=== PATIENT | female | born 1985 | race Caucasian/White ===

== ENCOUNTER 2017-09-16 00:29 | Emergency (ER) | payer MEDICARE, MEDICAID ==
[~2017-09-16] VITALS: Ht 154.9 cm; Wt 99.8 kg
[~2017-09-16 00:29] MED LIST: ABILIFY15 MG; ACETAMINOPHEN-1 EAC1 PO; AMLACTIN400 GM TP; ANTIVERT25 MG PO; AZITHROMYCIN 2250 MG PO; BACTRIM DS TAB1 EACH PO; BUSPIRONE HCL10 MG PO; CEFDINIR300 MG PO; CELEXA20 MG PO; CIPROFLOXIN HC2.5 M1 OPHTHALMIC; CRANBERRY200 MG; DOXYCYCLINE 10100 MG PO; GLUMETZA500; HYDRALAZINE 5050 MG; HYDROCHLOROTHIA25 M2 PO; HYDROCODONE-AP1 EAC6 PO; IBUPROFEN 800800 M1 PO; IBUPROFEN 800800 MG PO; LISINOPRIL10 MG PO; METFORMIN HCL500 MG PO; MULTIVITAMINS; NAPROSYN500 MG; NAPROSYN500 MG PO; NORCO 5-325 TA1 EACH PO; PAROXETINE HCL40 MG; PRAZOSIN 1 MG CA1 M1 PO; PREDNISONE50 MG PO; PROAIR HFA8.5 GM; PROAIR HFA8.5 GM PO; PROMETHAZINE-D120 ML PO; QVAR HFA 880 MCG/UN1; RISPERDAL 1 MG T1 MG PO; RISPERIDONE 1 MG1 MG; TOPAMAX 25 MG T25 M1; VENTOLIN HFA 1818 GM INH; ZANTAC 150MG T150 MG PO; ZOFRAN ODT4 MG PO
[2017-09-16] MEDS ORDERED: TRAMADOL 50 MG50 MG PO (00:41)
[2017-09-16] MEDS ORDERED: CLEOCIN HCL150 MG PO (00:41)
[2017-09-16 00:47] VITALS: BP 134/77
== END 2017-09-16 00:48 | disposition home or self-care (01) ==
LOC: M.ERS 00:29
DX: K08.89 Other specified disorders of teeth and supporting structures (principal); F17.210 Nicotine dependence, cigarettes, uncomplicated; F32.9 Major depressive disorder, single episode, unspecified; J45.909 Unspecified asthma, uncomplicated; F41.9 Anxiety disorder, unspecified; I10 Essential (primary) hypertension; F43.10 Post-traumatic stress disorder, unspecified; Z88.1 Allergy status to other antibiotic agents; Z88.0 Allergy status to penicillin; Z88.8 Allergy status to other drugs, medicaments and biological substances

== ENCOUNTER 2017-10-13 01:32 | Emergency (ER) | payer OTHER, MEDICAID ==
[~2017-10-13] VITALS: Ht 154.9 cm; Wt 104.3 kg
[~2017-10-13 01:32] MED LIST changes: +CLEOCIN HCL150 MG PO; +TRAMADOL 50 MG50 MG PO
[2017-10-13 01:57] LABS: ABSOLUTE BASOPHILS 0.1 thou/uL (0.0-0.2); ABSOLUTE EOSINOPHILS 0.2 thou/uL (0.0-0.7); ABSOLUTE LYMPHOCYTES 4.3 thou/uL (0.8-5.3); ABSOLUTE MONOCYTES 0.9 thou/uL (0.0-1.2); ABSOLUTE NEUTROPHILS 4.6 thou/uL (1.6-8.1); BASOPHILS 0.6 %; EOSINOPHILS 1.5 %; HEMATOCRIT 42.7 % (37.0-47.0); HEMOGLOBIN 14.3 gm/dL (12.0-15.0); LYMPHOCYTES 43.2 %; MCH 31.5 pg (26.0-34.0); MCHC 33.5 g/dL (28.0-37.0); MCV 93.8 fL (80.0-100.0); MONOCYTES 8.7 %; NUCLEATED RBCS 0 /100WBC; PLATELET COUNT* 340 thou/uL (150-400); RBC 4.55 mil/uL (4.20-5.00); RDW-CV 14.7 % (10.5-14.5)
[2017-10-13 02:02] LABS: ANION GAP 10 mmol/L (7-16); BUN 7 mg/dL (7-18); CALCIUM 8.5 mg/dL (8.5-10.1); CHLORIDE 106 mmol/L (98-107); CO2 25 mmol/L (21-32); CREATININE 0.7 mg/dL (0.6-1.3); GLUCOSE 154 mg/dL (70-99); POTASSIUM 3.3 mmol/L (3.5-5.1); SODIUM 141 mmol/L (136-145)
[2017-10-13 02:17] LABS: APTT 28.3 Seconds (25.0-31.3)
[2017-10-13 02:20] LABS: ALBUMIN 3.4 g/dL (3.4-5.0); ALKALINE PHOSPHATASE 75 U/L (46-116); LIPASE 217 U/L (73-393); MAGNESIUM 1.8 mg/dL (1.8-2.4); NT-PRO BRAIN NAT PEPTIDE 18 pg/mL (<300); SGOT 26 U/L (15-37); SGPT 64 U/L (30-65); TOTAL BILIRUBIN 0.2 mg/dL (<0.1-1.0); TOTAL PROTEIN 6.9 g/dL (6.4-8.2); TROPONIN-I LEVEL <0.06 ng/mL (<0.06)
[2017-10-13 02:29] VITALS: BP 150/72
--- NOTE | 2017-10-13 12:49 | EKG ---
[place] [address] ELECTROCARDIOGRAM REPORT Name: BRITTON CAT Room: [facility]#: [id number] Admission: 10/13/17 Attend Phys: Discharge: 10/13/17 Date of : [birth year] Report #: [id number] THIS REPORT FOR: //name// [facility] ED Test Date: 2017-10-13 Test Time: 01:35:28 Pat Name: BRITTON CAT Department: Room: Gender: F Radiology Asst: 9 : 1985 Requested By: Gage Huerta Order Number: [id number] MD: Gianfranco Aparicio Measurements Intervals [place] Rate: 93 P: 31 [place]: 136 QRS: 50 QRSD: 90 T: 29 QT: 339 QTc: 422 Interpretive Statements Sinus rhythm Multiple ventricular premature complexes Compared to ECG 06/22/2016 02:23:47 PVCs noted Electronically Signed On 10-13-2017 12:49:39 AUTOMOTIVE PARTS COORDINATOR by Gianfranco Aparicio [email or web address] <ELECTRONICALLY SIGNED> By: Gianfranco Aparicio MD, [facility] 10/13/17 1249 0135 0135 Gianfranco Aparicio MD, FACC /EPI
== END 2017-10-13 02:30 | disposition home or self-care (01) ==
LOC: M.ERS 01:32
PROVIDERS: Family Medicine
DX: R07.89 Other chest pain (principal); J45.909 Unspecified asthma, uncomplicated; I10 Essential (primary) hypertension; F32.3 Major depressive disorder, single episode, severe with psychotic features; Z88.0 Allergy status to penicillin; Z88.6 Allergy status to analgesic agent; Z88.1 Allergy status to other antibiotic agents; Z88.8 Allergy status to other drugs, medicaments and biological substances

== ENCOUNTER 2017-10-23 17:06 | Emergency (ER) | payer OTHER, MEDICAID ==
[~2017-10-23] VITALS: Ht 154.9 cm; Wt 104.3 kg
[2017-10-23] MEDS ORDERED: ACETAMINOPHEN-1 EAC1 PO (17:30)
[2017-10-23] MEDS ORDERED: IBUPROFEN 800800 MG PO (17:30)
[2017-10-23 17:34] VITALS: BP 149/83
== END 2017-10-23 17:42 | disposition home or self-care (01) ==
LOC: M.ERS 17:06
DX: M26.601 Right temporomandibular joint disorder, unspecified (principal); F32.9 Major depressive disorder, single episode, unspecified; F43.10 Post-traumatic stress disorder, unspecified; J45.909 Unspecified asthma, uncomplicated; F41.9 Anxiety disorder, unspecified; I10 Essential (primary) hypertension; F17.210 Nicotine dependence, cigarettes, uncomplicated; Z88.1 Allergy status to other antibiotic agents; Z88.2 Allergy status to sulfonamides; Z88.8 Allergy status to other drugs, medicaments and biological substances

== ENCOUNTER 2017-11-10 02:07 | Emergency (ER) | payer OTHER, MEDICAID ==
[~2017-11-10] VITALS: Ht 154.9 cm; Wt 104.3 kg
[2017-11-10] MEDS ORDERED: ACETAMINOPHEN-1 EAC1 PO (02:56)
[2017-11-10] MEDS ORDERED: CLEOCIN HCL150 MG PO (02:56)
[2017-11-10] MEDS ORDERED: IBUPROFEN 800800 M1 PO (02:56)
[2017-11-10 03:17] VITALS: BP 136/73
== END 2017-11-10 03:20 | disposition home or self-care (01) ==
LOC: M.ERS 02:07
DX: K02.9 Dental caries, unspecified (principal); I10 Essential (primary) hypertension; J45.909 Unspecified asthma, uncomplicated; Z88.1 Allergy status to other antibiotic agents; Z88.0 Allergy status to penicillin; Z88.6 Allergy status to analgesic agent

== ENCOUNTER 2017-11-18 02:40 | Emergency (ER) | payer OTHER, MEDICAID ==
[~2017-11-18] VITALS: Ht 154.9 cm; Wt 104.3 kg
[2017-11-18] MEDS ORDERED: CLEOCIN HCL150 MG PO (03:05)
[2017-11-18] MEDS ORDERED: PAROEX473 ML SWISH&SPIT (03:05)
[2017-11-18 03:17] VITALS: BP 153/80
== END 2017-11-18 03:18 | disposition home or self-care (01) ==
LOC: M.ERS 02:40
DX: K02.9 Dental caries, unspecified (principal); F32.9 Major depressive disorder, single episode, unspecified; F43.10 Post-traumatic stress disorder, unspecified; J45.909 Unspecified asthma, uncomplicated; F41.9 Anxiety disorder, unspecified; I10 Essential (primary) hypertension; F17.210 Nicotine dependence, cigarettes, uncomplicated; Z88.1 Allergy status to other antibiotic agents; Z88.6 Allergy status to analgesic agent; Z88.0 Allergy status to penicillin; Z88.8 Allergy status to other drugs, medicaments and biological substances

== ENCOUNTER 2018-01-08 00:43 | Emergency (ER) | payer OTHER ==
[~2018-01-08] VITALS: Ht 154.9 cm; Wt 102.1 kg
[~2018-01-08 00:43] MED LIST changes: +PAROEX473 ML SWISH&SPIT
[2018-01-08 01:21] LABS: URINE BILIRUBIN NEGATIVE (Negative); URINE BLOOD 3+ (Negative); URINE CLARITY SL CLOUDY; URINE COLOR YELLOW; URINE GLUCOSE-RANDOM NEGATIVE (Negative); URINE KETONES NEGATIVE (Negative); URINE LEUKOCYTES-REFLEX TRACE (Negative); URINE NITRITE-REFLEX NEGATIVE (Negative); URINE PROTEIN NEGATIVE (Negative); URINE UROBILINOGEN 0.2 E.U./dl (0.2-1.0)
[2018-01-08 01:32] LABS: ABSOLUTE BASOPHILS 0.1 thou/uL (0.0-0.2); ABSOLUTE EOSINOPHILS 0.2 thou/uL (0.0-0.7); ABSOLUTE LYMPHOCYTES 3.3 thou/uL (0.8-5.3); ABSOLUTE MONOCYTES 0.8 thou/uL (0.0-1.2); ABSOLUTE NEUTROPHILS 4.2 thou/uL (1.6-8.1); BASOPHILS 0.9 %; HEMOGLOBIN 14.9 gm/dL (12.0-15.0); LYMPHOCYTES 38.9 %; MCH 31.8 pg (26.0-34.0); MCHC 33.9 g/dL (28.0-37.0); MCV 93.6 fL (80.0-100.0); MONOCYTES 9.3 %; NUCLEATED RBCS 0 /100WBC; PLATELET COUNT* 325 thou/uL (150-400); POLYS 48.9 %; RDW-CV 14.6 % (10.5-14.5); WBC 8.6 thou/uL (4.0-11.0)
[2018-01-08 01:33] LABS: BACTERIA-REFLEX >30 Many /HPF (None Seen); CASTS None Seen /LPF (None Seen); CRYSTALS None Seen /LPF (None Seen); MUCUS 0-3 Light strn/LPF (None Seen); SQUAMOUS 0-3 Few /LPF (0-3); URINE RBC >20 Many /HPF (0-2); URINE WBC-REFLEX 6-15 Few /HPF (0-5); WBC CLUMPS Few (None Seen)
[2018-01-08 01:39] LABS: CALCIUM 9.4 mg/dL (8.5-10.1); CREATININE 0.6 mg/dL (0.6-1.3); POTASSIUM 3.2 mmol/L (3.5-5.1)
[2018-01-08 01:44] LABS: ALBUMIN 3.6 g/dL (3.4-5.0); TOTAL BILIRUBIN 0.3 mg/dL (<0.1-1.0); TOTAL PROTEIN 7.5 g/dL (6.4-8.2)
[2018-01-08] MEDS ORDERED: CIPROFLOXACIN500 M1 PO (02:13)
[2018-01-08] MEDS ORDERED: ZOFRAN ODT4 MG PO (02:13)
[2018-01-08 03:02] VITALS: BP 111/55
== END 2018-01-08 03:03 | disposition home or self-care (01) ==
LOC: M.ERS 00:43
PROVIDERS: Emergency Medicine
DX: N39.0 Urinary tract infection, site not specified (principal); R11.2 Nausea with vomiting, unspecified; R19.7 Diarrhea, unspecified; R10.33 Periumbilical pain; F32.9 Major depressive disorder, single episode, unspecified; F43.10 Post-traumatic stress disorder, unspecified; J45.909 Unspecified asthma, uncomplicated; F41.9 Anxiety disorder, unspecified; I10 Essential (primary) hypertension; F17.210 Nicotine dependence, cigarettes, uncomplicated; Z88.1 Allergy status to other antibiotic agents; Z88.6 Allergy status to analgesic agent; Z88.8 Allergy status to other drugs, medicaments and biological substances; Z88.0 Allergy status to penicillin

== ENCOUNTER 2018-01-16 22:58 | Emergency (ER) | payer OTHER, MEDICAID ==
[~2018-01-16] VITALS: Ht 154.9 cm; Wt 102.1 kg
[~2018-01-16 22:58] MED LIST changes: +CIPROFLOXACIN500 M1 PO
[2018-01-16 23:21] LABS: URINE BILIRUBIN NEGATIVE (Negative); URINE BLOOD NEGATIVE (Negative); URINE CLARITY CLEAR; URINE COLOR YELLOW; URINE GLUCOSE-RANDOM 1+ (Negative); URINE KETONES NEGATIVE (Negative); URINE LEUKOCYTES-REFLEX NEGATIVE (Negative); URINE NITRITE-REFLEX NEGATIVE (Negative); URINE PROTEIN NEGATIVE (Negative); URINE SPECIFIC GRAVITY >= 1.030 (1.005-1.030); URINE UROBILINOGEN 0.2 E.U./dl (0.2-1.0)
[2018-01-16 23:29] LABS: HEMATOCRIT 46.9 % (37.0-47.0); HEMOGLOBIN 15.8 gm/dL (12.0-15.0); MCHC 33.8 g/dL (28.0-37.0); MCV 91.8 fL (80.0-100.0); MPV 9.3 fl. (7.2-11.1); NUCLEATED RBCS 0 /100WBC; PLATELET COUNT* 368 thou/uL (150-400); RDW-CV 14.2 % (10.5-14.5); WBC 11.9 thou/uL (4.0-11.0)
[2018-01-16 23:31] LABS: CALCIUM 9.4 mg/dL (8.5-10.1); CREATININE 0.7 mg/dL (0.6-1.3); POTASSIUM 3.9 mmol/L (3.5-5.1)
[2018-01-16 23:35] LABS: ALBUMIN 3.7 g/dL (3.4-5.0); TOTAL BILIRUBIN 0.2 mg/dL (<0.1-1.0); TOTAL PROTEIN 7.7 g/dL (6.4-8.2)
[2018-01-16 23:49] LABS: ABSOLUTE EOSINOPHILS 0.1 thou/uL (0.0-0.7); ABSOLUTE MONOCYTES 0.6 thou/uL (0.0-1.2); ABSOLUTE NEUTROPHILS 8.2 thou/uL (1.6-8.1)
[2018-01-16 23:50] LABS: PLATELET ESTIMATE ADEQUATE
[2018-01-17] MEDS ORDERED: HYDROCODON-ACE1 EAC7 PO (00:57)
[2018-01-17 01:29] VITALS: BP 116/80
== END 2018-01-17 01:30 | disposition home or self-care (01) ==
LOC: M.ERS 22:58
PROVIDERS: Physician Assistant
DX: R10.33 Periumbilical pain (principal); R11.2 Nausea with vomiting, unspecified; R19.7 Diarrhea, unspecified; F32.9 Major depressive disorder, single episode, unspecified; F43.10 Post-traumatic stress disorder, unspecified; J45.909 Unspecified asthma, uncomplicated; F41.9 Anxiety disorder, unspecified; I10 Essential (primary) hypertension; E11.9 Type 2 diabetes mellitus without complications; F17.210 Nicotine dependence, cigarettes, uncomplicated; Z88.1 Allergy status to other antibiotic agents; Z88.6 Allergy status to analgesic agent; Z88.8 Allergy status to other drugs, medicaments and biological substances; Z88.0 Allergy status to penicillin

== ENCOUNTER 2018-04-26 23:50 | Emergency (ER) | payer OTHER, MEDICAID ==
[~2018-04-26] VITALS: Ht 154.9 cm; Wt 101.6 kg
[~2018-04-26 23:50] MED LIST changes: +HYDROCODON-ACE1 EAC7 PO
[2018-04-26 23:59] VITALS: BP 157/63
[2018-04-27] MEDS ORDERED: BUSPIRONE HCL10 MG PO (00:02)
[2018-04-27] MEDS ORDERED: PRAZOSIN 1 MG CA1 M1 PO (00:03)
[2018-04-27] MEDS ORDERED: NAPROSYN500 MG PO (00:40)
== END 2018-04-27 00:48 | disposition home or self-care (01) ==
LOC: M.ERS 23:50
DX: M25.511 Pain in right shoulder (principal); F32.9 Major depressive disorder, single episode, unspecified; J45.909 Unspecified asthma, uncomplicated; F41.9 Anxiety disorder, unspecified; I10 Essential (primary) hypertension; E11.9 Type 2 diabetes mellitus without complications; Z88.1 Allergy status to other antibiotic agents; Z88.0 Allergy status to penicillin; Z88.6 Allergy status to analgesic agent

== ENCOUNTER 2018-05-02 22:12 | Emergency (ER) | payer OTHER, MEDICAID ==
[~2018-05-02] VITALS: Ht 154.9 cm; Wt 101.6 kg
[2018-05-02] MEDS ORDERED: ZPAK PO (22:48)
[2018-05-02 23:02] VITALS: BP 135/79
== END 2018-05-02 23:03 | disposition home or self-care (01) ==
LOC: M.ERS 22:12
DX: J03.80 Acute tonsillitis due to other specified organisms (principal); B96.89 Other specified bacterial agents as the cause of diseases classified elsewhere; F32.9 Major depressive disorder, single episode, unspecified; J45.909 Unspecified asthma, uncomplicated; F41.9 Anxiety disorder, unspecified; I10 Essential (primary) hypertension; E11.9 Type 2 diabetes mellitus without complications; K58.9 Irritable bowel syndrome, unspecified; F17.210 Nicotine dependence, cigarettes, uncomplicated; Z88.1 Allergy status to other antibiotic agents; Z88.0 Allergy status to penicillin; Z88.6 Allergy status to analgesic agent; Z88.8 Allergy status to other drugs, medicaments and biological substances

== ENCOUNTER 2018-05-06 23:54 | Emergency (ER) | payer OTHER, MEDICAID ==
[~2018-05-06] VITALS: Ht 154.9 cm; Wt 101.6 kg
[~2018-05-06 23:54] MED LIST changes: +ZPAK PO
[2018-05-07] MEDS ORDERED: IBUPROFEN 800800 M1 PO (01:06)
[2018-05-07 01:17] VITALS: BP 144/80
== END 2018-05-07 01:18 | disposition home or self-care (01) ==
LOC: M.ERS 23:54
DX: B34.9 Viral infection, unspecified (principal); I10 Essential (primary) hypertension; F41.9 Anxiety disorder, unspecified; E11.9 Type 2 diabetes mellitus without complications; F32.9 Major depressive disorder, single episode, unspecified; K58.9 Irritable bowel syndrome, unspecified; F17.210 Nicotine dependence, cigarettes, uncomplicated; Z88.1 Allergy status to other antibiotic agents; Z88.0 Allergy status to penicillin; Z88.6 Allergy status to analgesic agent

== ENCOUNTER 2018-05-11 16:08 | Emergency (ER) | payer OTHER, MEDICAID ==
[~2018-05-11] VITALS: Ht 154.9 cm; Wt 101.6 kg
[2018-05-11] MEDS ORDERED: IBUPROFEN 800800 MG PO (16:47)
[2018-05-11] MEDS ORDERED: KEFLEX500 M1 PO (16:47)
[2018-05-11 17:01] VITALS: BP 145/99
== END 2018-05-11 17:03 | disposition home or self-care (01) ==
LOC: M.ERS 16:08
DX: M26.621 Arthralgia of right temporomandibular joint (principal); J45.909 Unspecified asthma, uncomplicated; I10 Essential (primary) hypertension; E11.9 Type 2 diabetes mellitus without complications; F17.210 Nicotine dependence, cigarettes, uncomplicated; Z88.0 Allergy status to penicillin; Z88.1 Allergy status to other antibiotic agents; Z88.6 Allergy status to analgesic agent; Z88.8 Allergy status to other drugs, medicaments and biological substances

== ENCOUNTER 2018-05-27 18:19 | Emergency (ER) | payer OTHER, MEDICAID ==
[~2018-05-27] VITALS: Ht 154.9 cm; Wt 101.6 kg
[~2018-05-27 18:19] MED LIST changes: +KEFLEX500 M1 PO
[2018-05-27 18:37] LABS: URINE BILIRUBIN NEGATIVE (Negative); URINE BLOOD NEGATIVE (Negative); URINE CLARITY CLEAR; URINE COLOR YELLOW; URINE GLUCOSE-RANDOM NEGATIVE (Negative); URINE KETONES NEGATIVE (Negative); URINE LEUKOCYTES TRACE (Negative); URINE NITRITE NEGATIVE (Negative); URINE PROTEIN NEGATIVE (Negative); URINE SPECIFIC GRAVITY <= 1.005 (1.005-1.030); URINE UROBILINOGEN 0.2 E.U./dl (0.2-1.0)
[2018-05-27] MEDS ORDERED: ZANTAC 150MG T150 MG PO (18:39)
[2018-05-27] MEDS ORDERED: METFORMIN HCL500 MG PO (18:39)
[2018-05-27] MEDS ORDERED: CRANBERRY500 M3 PO (18:40)
[2018-05-27 18:43] LABS: BACTERIA 1-9 Few /HPF (None Seen); CRYSTALS None Seen /LPF (None Seen); MUCUS None Seen strn/LPF (None Seen); SQUAMOUS 4-10 Moderate /LPF (0-3); URINE RBC None Seen /HPF (0-2); URINE WBC 0-5 Rare /HPF (0-5)
[2018-05-27 18:44] LABS: CASTS None Seen /LPF (None Seen)
[2018-05-27] MEDS ORDERED: TRAMADOL 50 MG50 MG PO (19:00)
[2018-05-27] MEDS ORDERED: CEFDINIR300 MG PO (19:00)
[2018-05-27] MEDS ORDERED: NABUMETONE 750750 M1 PO (19:00)
[2018-05-27] MEDS ORDERED: PYRIDIUM100 M1 PO (19:01)
[2018-05-27 19:27] VITALS: BP 128/54
[2018-05-28] MEDS ORDERED: ZOFRAN ODT4 MG SUBLING (01:48)
== END 2018-05-27 19:27 | disposition home or self-care (01) ==
LOC: M.ERS 18:19
PROVIDERS: Nurse Practitioner Family
DX: N39.0 Urinary tract infection, site not specified (principal); H66.91 Otitis media, unspecified, right ear; K04.7 Periapical abscess without sinus; K02.9 Dental caries, unspecified; E11.9 Type 2 diabetes mellitus without complications; I10 Essential (primary) hypertension; F41.9 Anxiety disorder, unspecified; J45.909 Unspecified asthma, uncomplicated; F32.9 Major depressive disorder, single episode, unspecified; F17.210 Nicotine dependence, cigarettes, uncomplicated; Z88.1 Allergy status to other antibiotic agents; Z88.0 Allergy status to penicillin; Z88.6 Allergy status to analgesic agent

== ENCOUNTER 2018-05-28 01:33 | Emergency (ER) | payer OTHER, MEDICAID ==
[~2018-05-28] VITALS: Ht 154.9 cm; Wt 101.6 kg
[~2018-05-28 01:33] MED LIST changes: +CRANBERRY500 M3 PO; +NABUMETONE 750750 M1 PO; +PYRIDIUM100 M1 PO
[2018-05-28 01:37] VITALS: BP 147/83
[2018-05-28] MEDS ORDERED: ZOFRAN ODT4 MG SUBLING (01:48)
== END 2018-05-28 02:09 | disposition home or self-care (01) ==
LOC: M.ERS 01:33
DX: R11.2 Nausea with vomiting, unspecified (principal); R06.02 Shortness of breath; K08.89 Other specified disorders of teeth and supporting structures; J45.909 Unspecified asthma, uncomplicated; F41.9 Anxiety disorder, unspecified; I10 Essential (primary) hypertension; E11.9 Type 2 diabetes mellitus without complications; F32.3 Major depressive disorder, single episode, severe with psychotic features; F17.210 Nicotine dependence, cigarettes, uncomplicated; Z88.1 Allergy status to other antibiotic agents; Z88.0 Allergy status to penicillin; Z88.6 Allergy status to analgesic agent

== ENCOUNTER 2018-06-03 23:13 | Emergency (ER) | payer OTHER, MEDICAID ==
[~2018-06-03] VITALS: Ht 154.9 cm; Wt 95.3 kg
[~2018-06-03 23:13] MED LIST changes: +ZOFRAN ODT4 MG SUBLING
[2018-06-03 23:32] LABS: URINE BILIRUBIN NEGATIVE (Negative); URINE BLOOD 1+ (Negative); URINE CLARITY CLEAR; URINE COLOR YELLOW; URINE GLUCOSE-RANDOM NEGATIVE (Negative); URINE KETONES NEGATIVE (Negative); URINE LEUKOCYTES-REFLEX TRACE (Negative); URINE NITRITE-REFLEX NEGATIVE (Negative); URINE PROTEIN NEGATIVE (Negative); URINE UROBILINOGEN 0.2 E.U./dl (0.2-1.0)
[2018-06-03] MEDS ORDERED: CLEOCIN HCL150 MG PO (23:48)
[2018-06-03] MEDS ORDERED: PERIDEX15 ML SWISH&SPIT (23:48)
[2018-06-03 23:56] VITALS: BP 153/79
[2018-06-03 23:57] LABS: SQUAMOUS >10 Many /LPF (0-3)
[2018-06-03 23:58] LABS: CASTS None Seen /LPF (None Seen)
[2018-06-04] LABS: URINE WBC-REFLEX 6-15 Few /HPF (0-5)
[2018-06-04 00:01] LABS: BACTERIA-REFLEX 1-9 Few /HPF (None Seen); URINE RBC 3-10 Few /HPF (0-2); YEAST-REFLEX Present (None Seen)
[2018-06-04 00:02] LABS: CRYSTALS None Seen /LPF (None Seen)
== END 2018-06-03 23:58 | disposition home or self-care (01) ==
LOC: M.ERS 23:13
PROVIDERS: Physician Assistant
DX: K04.7 Periapical abscess without sinus (principal); R30.0 Dysuria; F32.9 Major depressive disorder, single episode, unspecified; J45.909 Unspecified asthma, uncomplicated; F41.9 Anxiety disorder, unspecified; I10 Essential (primary) hypertension; E11.9 Type 2 diabetes mellitus without complications; F17.210 Nicotine dependence, cigarettes, uncomplicated; Z88.0 Allergy status to penicillin; Z88.1 Allergy status to other antibiotic agents; Z88.6 Allergy status to analgesic agent

== ENCOUNTER 2018-06-09 02:51 | Emergency (ER) | payer OTHER, MEDICAID ==
[~2018-06-09] VITALS: Ht 154.9 cm; Wt 101.6 kg
[~2018-06-09 02:51] MED LIST changes: +PERIDEX15 ML SWISH&SPIT
[2018-06-09 03:42] LABS: ABSOLUTE EOSINOPHILS 0.2 thou/uL (0.0-0.7); ABSOLUTE LYMPHOCYTES 3.4 thou/uL (0.8-5.3); ABSOLUTE MONOCYTES 0.7 thou/uL (0.0-1.2); ABSOLUTE NEUTROPHILS 4.2 thou/uL (1.6-8.1); BASOPHILS 0.4 %; EOSINOPHILS 1.8 %; HEMATOCRIT 42.1 % (37.0-47.0); MCH 31.4 pg (26.0-34.0); MCHC 33.3 g/dL (28.0-37.0); MCV 94.4 fL (80.0-100.0); MONOCYTES 8.3 %; MPV 8.9 fl. (7.2-11.1); NUCLEATED RBCS 0 /100WBC; PLATELET COUNT* 359 thou/uL (150-400); POLYS 49.5 %; RBC 4.46 mil/uL (4.20-5.00); RDW-CV 14.3 % (10.5-14.5); WBC 8.4 thou/uL (4.0-11.0)
[2018-06-09 03:52] LABS: ANION GAP 11 mmol/L (7-16); BUN 7 mg/dL (7-18); CALCIUM 9.1 mg/dL (8.5-10.1); CHLORIDE 104 mmol/L (98-107); CO2 24 mmol/L (21-32); CREATININE 0.6 mg/dL (0.6-1.3); GLUCOSE 103 mg/dL (70-99); SODIUM 139 mmol/L (136-145)
[2018-06-09 04:00] LABS: TROPONIN-I LEVEL <0.06 ng/mL (<0.06)
[2018-06-09 05:39] VITALS: BP 111/58
--- NOTE | 2018-06-09 12:01 | EKG ---
[place] [address] ELECTROCARDIOGRAM REPORT Name: BRITTON CAT [id number] Admission: 06/09/18 Attend Phys: Discharge: 06/09/18 Date of : [birth year] Report #: [id number] THIS REPORT FOR: //name// [facility] ED Test Date: 2018-06-09 Test Time: 02:57:58 Pat Name: BRITTON CAT Department: Room: Gender: F Sail Lay Out Worker: PIOTR : 1985 Requested By: Maureen Pérez Order Number: [id number] MD: Francis Gomez Measurements Intervals [place] Rate: 84 P: 36 [place]: 142 QRS: 45 QRSD: 92 T: 0 QT: 360 QTc: 426 Interpretive Statements Sinus rhythm Minimal ST depression, inferior leads Baseline wander in lead(s) I,II,aVR,V1,V3,V4,V5,V6 Compared to ECG 10/13/2017 01:35:28 ST (T wave) deviation now present Ventricular premature complex(es) no longer present Electronically Signed On 06-09-2018 12:01:22 CDT by Francis Gomez [email or web address] <ELECTRONICALLY SIGNED> By: Francis Gomez MD, FACC 06/09/18 1201 0257 0257 Francis Gomez MD, FACC /EPI
== END 2018-06-09 05:39 | disposition home or self-care (01) ==
LOC: M.ERS 02:51
PROVIDERS: Emergency Medicine
DX: F41.9 Anxiety disorder, unspecified (principal); F32.9 Major depressive disorder, single episode, unspecified; J45.909 Unspecified asthma, uncomplicated; I10 Essential (primary) hypertension; E11.9 Type 2 diabetes mellitus without complications; K58.9 Irritable bowel syndrome, unspecified; F17.210 Nicotine dependence, cigarettes, uncomplicated; Z88.1 Allergy status to other antibiotic agents; Z88.0 Allergy status to penicillin; Z88.6 Allergy status to analgesic agent

== ENCOUNTER 2018-06-22 00:48 | Emergency (ER) | payer OTHER, MEDICAID ==
[~2018-06-22] VITALS: Ht 154.9 cm; Wt 101.6 kg
[2018-06-22] MEDS ORDERED: ULTRAM 50MG TAB50 MG PO (01:54)
[2018-06-22 02:07] VITALS: BP 136/78
== END 2018-06-22 02:09 | disposition home or self-care (01) ==
LOC: M.ERS 00:48
DX: S93.401A Sprain of unspecified ligament of right ankle, initial encounter (principal); X58.XXXA Exposure to other specified factors, initial encounter; Y93.89 Activity, other specified; Y92.89 Other specified places as the place of occurrence of the external cause; Y99.8 Other external cause status; J45.909 Unspecified asthma, uncomplicated; F41.9 Anxiety disorder, unspecified; I10 Essential (primary) hypertension; E11.9 Type 2 diabetes mellitus without complications; F32.3 Major depressive disorder, single episode, severe with psychotic features; F17.210 Nicotine dependence, cigarettes, uncomplicated; Z88.0 Allergy status to penicillin; Z88.1 Allergy status to other antibiotic agents; Z88.6 Allergy status to analgesic agent

== ENCOUNTER 2018-07-19 22:09 | Emergency (ER) | payer OTHER, MEDICAID ==
[~2018-07-19] VITALS: Ht 154.9 cm; Wt 102.1 kg
[~2018-07-19 22:09] MED LIST changes: +ULTRAM 50MG TAB50 MG PO
[2018-07-19 22:47] VITALS: BP 121/75
== END 2018-07-19 22:47 | disposition home or self-care (01) ==
LOC: M.ERS 22:09
DX: M25.511 Pain in right shoulder (principal); H92.01 Otalgia, right ear; F32.9 Major depressive disorder, single episode, unspecified; J45.909 Unspecified asthma, uncomplicated; F41.9 Anxiety disorder, unspecified; I10 Essential (primary) hypertension; E11.9 Type 2 diabetes mellitus without complications; K58.9 Irritable bowel syndrome, unspecified; F17.210 Nicotine dependence, cigarettes, uncomplicated; Z88.1 Allergy status to other antibiotic agents; Z88.0 Allergy status to penicillin; Z88.6 Allergy status to analgesic agent; Z88.8 Allergy status to other drugs, medicaments and biological substances

== ENCOUNTER 2018-07-29 23:47 | Emergency (ER) | payer OTHER, MEDICAID ==
[~2018-07-29] VITALS: Ht 154.9 cm; Wt 102.1 kg
[2018-07-30] MEDS ORDERED: PREDNISONE50 MG PO (00:30)
[2018-07-30 00:55] VITALS: BP 130/70
== END 2018-07-30 00:55 | disposition home or self-care (01) ==
LOC: M.ERS 23:47
DX: R20.2 Paresthesia of skin (principal); M62.838 Other muscle spasm; F32.9 Major depressive disorder, single episode, unspecified; F32.3 Major depressive disorder, single episode, severe with psychotic features; J45.909 Unspecified asthma, uncomplicated; F41.9 Anxiety disorder, unspecified; E11.9 Type 2 diabetes mellitus without complications; K58.9 Irritable bowel syndrome, unspecified; Z88.1 Allergy status to other antibiotic agents; Z88.0 Allergy status to penicillin; Z88.6 Allergy status to analgesic agent; Z79.4 Long term (current) use of insulin

== ENCOUNTER 2018-08-16 20:34 | Emergency (ER) | payer OTHER, MEDICAID ==
[~2018-08-16] VITALS: Ht 154.9 cm; Wt 102.1 kg
[2018-08-16] MEDS ORDERED: BENTYL 20 MG TA20 M1 PO (21:19)
[2018-08-16] MEDS ORDERED: PROTONIX40 M1 PO (21:19)
[2018-08-16] MEDS ORDERED: CEFDINIR300 MG PO (21:37)
[2018-08-16 21:50] VITALS: BP 145/58
== END 2018-08-16 21:50 | disposition home or self-care (01) ==
LOC: M.ERS 20:34
DX: H66.91 Otitis media, unspecified, right ear (principal); F41.9 Anxiety disorder, unspecified; I10 Essential (primary) hypertension; E11.9 Type 2 diabetes mellitus without complications; K58.9 Irritable bowel syndrome, unspecified; F32.9 Major depressive disorder, single episode, unspecified; J45.909 Unspecified asthma, uncomplicated; F17.210 Nicotine dependence, cigarettes, uncomplicated; Z88.1 Allergy status to other antibiotic agents; Z88.0 Allergy status to penicillin; Z88.6 Allergy status to analgesic agent

== ENCOUNTER 2018-08-20 03:16 | Emergency (ER) | payer OTHER, MEDICAID ==
[~2018-08-20] VITALS: Ht 154.9 cm; Wt 102.1 kg
[~2018-08-20 03:16] MED LIST changes: +BENTYL 20 MG TA20 M1 PO; +PROTONIX40 M1 PO
[2018-08-20] MEDS ORDERED: NORCO 5-325 TA1 EACH PO (03:33)
[2018-08-20 03:48] VITALS: BP 137/88
[2018-08-21] MEDS ORDERED: CLEOCIN HCL300 MG PO (16:31)
== END 2018-08-20 03:45 | disposition home or self-care (01) ==
LOC: M.ERS 03:16
DX: M26.602 Left temporomandibular joint disorder, unspecified (principal); F41.9 Anxiety disorder, unspecified; E11.9 Type 2 diabetes mellitus without complications; K58.9 Irritable bowel syndrome, unspecified; J45.909 Unspecified asthma, uncomplicated; F32.3 Major depressive disorder, single episode, severe with psychotic features; F17.210 Nicotine dependence, cigarettes, uncomplicated; Z88.1 Allergy status to other antibiotic agents; Z88.0 Allergy status to penicillin; Z88.6 Allergy status to analgesic agent

== ENCOUNTER 2018-08-21 14:52 | Emergency (ER) | payer OTHER, MEDICAID ==
[~2018-08-21] VITALS: Ht 154.9 cm; Wt 102.1 kg
[2018-08-21 15:30] LABS: URINE BILIRUBIN NEGATIVE (Negative); URINE BLOOD NEGATIVE (Negative); URINE CLARITY CLEAR; URINE COLOR YELLOW; URINE GLUCOSE-RANDOM NEGATIVE (Negative); URINE KETONES NEGATIVE (Negative); URINE LEUKOCYTES-REFLEX NEGATIVE (Negative); URINE NITRITE-REFLEX NEGATIVE (Negative); URINE PROTEIN NEGATIVE (Negative); URINE SPECIFIC GRAVITY <= 1.005 (1.005-1.030); URINE UROBILINOGEN 0.2 E.U./dl (0.2-1.0)
[2018-08-21] MEDS ORDERED: CLEOCIN HCL300 MG PO (16:31)
[2018-08-21 16:41] VITALS: BP 141/82
== END 2018-08-21 16:41 | disposition home or self-care (01) ==
LOC: M.ERS 14:52
PROVIDERS: Nurse Practitioner Family
DX: K02.9 Dental caries, unspecified (principal); R30.0 Dysuria; L53.9 Erythematous condition, unspecified; F32.3 Major depressive disorder, single episode, severe with psychotic features; J45.909 Unspecified asthma, uncomplicated; F41.9 Anxiety disorder, unspecified; I10 Essential (primary) hypertension; E11.9 Type 2 diabetes mellitus without complications; K58.9 Irritable bowel syndrome, unspecified; F17.210 Nicotine dependence, cigarettes, uncomplicated; Z88.1 Allergy status to other antibiotic agents; Z88.0 Allergy status to penicillin; Z88.6 Allergy status to analgesic agent

== ENCOUNTER 2018-08-22 12:23 | Emergency (ER) | payer OTHER, MEDICAID ==
[~2018-08-22] VITALS: Ht 154.9 cm; Wt 102.1 kg
[~2018-08-22 12:23] MED LIST changes: +CLEOCIN HCL300 MG PO
[2018-08-22 13:06] LABS: ABSOLUTE BASOPHILS 0.1 thou/uL (0.0-0.2); ABSOLUTE EOSINOPHILS 0.1 thou/uL (0.0-0.7); ABSOLUTE LYMPHOCYTES 2.2 thou/uL (0.8-5.3); ABSOLUTE NEUTROPHILS 8.1 thou/uL (1.6-8.1); BASOPHILS 0.6 %; EOSINOPHILS 0.6 %; HEMATOCRIT 43.5 % (37.0-47.0); HEMOGLOBIN 14.8 gm/dL (12.0-15.0); LYMPHOCYTES 19.4 %; MCH 31.8 pg (26.0-34.0); MCV 93.6 fL (80.0-100.0); MONOCYTES 8.4 %; NUCLEATED RBCS 0 /100WBC; PLATELET COUNT* 352 thou/uL (150-400); RBC 4.65 mil/uL (4.20-5.00); RDW-CV 14.4 % (10.5-14.5); WBC 11.4 thou/uL (4.0-11.0)
[2018-08-22 13:12] LABS: CREATININE 0.5 mg/dL (0.6-1.3); POTASSIUM 3.8 mmol/L (3.5-5.1)
[2018-08-22 13:16] LABS: ALBUMIN 3.5 g/dL (3.4-5.0); TOTAL BILIRUBIN 0.4 mg/dL (<0.1-1.0); TOTAL PROTEIN 7.1 g/dL (6.4-8.2)
[2018-08-22 17:48] VITALS: BP 148/85
== END 2018-08-22 17:49 | disposition left against medical advice (07) ==
LOC: M.ERS 12:23
PROVIDERS: Personal Emergency Response Attendant
DX: K12.2 Cellulitis and abscess of mouth (principal); K02.9 Dental caries, unspecified; R22.0 Localized swelling, mass and lump, head; J45.909 Unspecified asthma, uncomplicated; F41.9 Anxiety disorder, unspecified; I10 Essential (primary) hypertension; E11.9 Type 2 diabetes mellitus without complications; K58.9 Irritable bowel syndrome, unspecified; R11.10 Vomiting, unspecified; F17.210 Nicotine dependence, cigarettes, uncomplicated; Z88.1 Allergy status to other antibiotic agents; Z88.6 Allergy status to analgesic agent; Z88.0 Allergy status to penicillin

== ENCOUNTER → 2018-12-19 | Emergency (ER) | payer OTHER, MEDICAID ==
[~2018-12-19] VITALS: Ht 154.9 cm; Wt 104.3 kg
[~2018-12-19] MED LIST changes: +FLONASE 0.05%50 MCG NASAL
[2018-12-19 23:09] VITALS: BP 143/68
== END ==
LOC: M.ERS 23:03
DX: J32.9 Chronic sinusitis, unspecified (principal); F17.210 Nicotine dependence, cigarettes, uncomplicated; F32.9 Major depressive disorder, single episode, unspecified; J45.909 Unspecified asthma, uncomplicated; F41.9 Anxiety disorder, unspecified; I10 Essential (primary) hypertension; E11.9 Type 2 diabetes mellitus without complications; K58.9 Irritable bowel syndrome, unspecified; Z88.1 Allergy status to other antibiotic agents; Z88.6 Allergy status to analgesic agent; Z88.8 Allergy status to other drugs, medicaments and biological substances; Z88.0 Allergy status to penicillin

== ENCOUNTER 2018-12-24 20:35 | Emergency (ER) | payer OTHER, MEDICAID ==
[~2018-12-24] VITALS: Ht 154.9 cm; Wt 104.3 kg
[2018-12-24 21:11] LABS: ABSOLUTE BASOPHILS 0.1 thou/uL (0.0-0.2); ABSOLUTE EOSINOPHILS 0.1 thou/uL (0.0-0.7); ABSOLUTE LYMPHOCYTES 2.9 thou/uL (0.8-5.3); ABSOLUTE MONOCYTES 0.6 thou/uL (0.0-1.2); ABSOLUTE NEUTROPHILS 5.8 thou/uL (1.6-8.1); BASOPHILS 1.3 %; EOSINOPHILS 1.2 %; HEMATOCRIT 42.5 % (37.0-47.0); HEMOGLOBIN 14.5 gm/dL (12.0-15.0); LYMPHOCYTES 30.5 %; MCH 31.5 pg (26.0-34.0); MCHC 34.1 g/dL (28.0-37.0); MCV 92.4 fL (80.0-100.0); MONOCYTES 6.3 %; MPV 8.6 fl. (7.2-11.1); NUCLEATED RBCS 0 /100WBC; PLATELET COUNT* 336 thou/uL (150-400); POLYS 60.7 %; RDW-CV 14.3 % (10.5-14.5); WBC 9.6 thou/uL (4.0-11.0)
[2018-12-24 21:19] LABS: ANION GAP 12 mmol/L (7-16); BUN 10 mg/dL (7-18); CALCIUM 8.9 mg/dL (8.5-10.1); CHLORIDE 106 mmol/L (98-107); CO2 23 mmol/L (21-32); CREATININE 0.6 mg/dL (0.6-1.3); GLUCOSE 155 mg/dL (70-99); POTASSIUM 3.7 mmol/L (3.5-5.1); SODIUM 141 mmol/L (136-145)
[2018-12-24 21:29] LABS: ALBUMIN 3.6 g/dL (3.4-5.0); ALKALINE PHOSPHATASE 87 U/L (46-116); LIPASE 209 U/L (73-393); NT-PRO BRAIN NAT PEPTIDE 6 pg/mL (<300); SGOT 57 U/L (15-37); SGPT 107 U/L (30-65); TOTAL BILIRUBIN 0.3 mg/dL (<0.1-1.0); TOTAL PROTEIN 7.2 g/dL (6.4-8.2); TROPONIN-I LEVEL <0.06 ng/mL (<0.06)
[2018-12-24 21:50] VITALS: BP 113/56
--- NOTE | 2018-12-25 10:49 | EKG ---
[place] [address] ELECTROCARDIOGRAM REPORT Name: EMORYBRITTON WRIGHT Room: [facility]#: [id number] Admission: 12/24/18 Attend Phys: Discharge: 12/24/18 Date of : [birth year] Report #: [id number] THIS REPORT FOR: //name// [facility] ED Test Date: 2018-12-24 Test Time: 20:42:56 Pat Name: BRITTON CAT Department: Room: Gender: F Facilities Maintenance Manager: Barry DOTY : 1985 Requested By: Kvng Quach Order Number: [id number] MD: Javon Pinedo Measurements Intervals [place] Rate: 102 P: 15 MD: 154 QRS: 38 QRSD: 87 T: -1 QT: 317 QTc: 413 Interpretive Statements Sinus tachycardia Ventricular premature complex Consider left atrial enlargement Compared to ECG 06/09/2018 02:57:58 Ventricular premature complex(es) now present Sinus rhythm no longer present ST (T wave) deviation no longer present Electronically Signed On 12-25-2018 10:48:57 CDT by Javon Pinedo [email or web address] <ELECTRONICALLY SIGNED> By: Javon Pinedo MD, [facility] 12/25/18 1048 41 41 Javon Pinedo MD, [facility] /EPI
== END 2018-12-24 21:52 | disposition home or self-care (01) ==
LOC: M.ERS 20:35
PROVIDERS: Emergency Medicine
DX: R07.89 Other chest pain (principal); F41.9 Anxiety disorder, unspecified; F32.3 Major depressive disorder, single episode, severe with psychotic features; J45.909 Unspecified asthma, uncomplicated; I10 Essential (primary) hypertension; E11.9 Type 2 diabetes mellitus without complications; F17.210 Nicotine dependence, cigarettes, uncomplicated; Z88.0 Allergy status to penicillin; Z88.1 Allergy status to other antibiotic agents; Z88.8 Allergy status to other drugs, medicaments and biological substances

== ENCOUNTER 2018-12-29 01:19 | Emergency (ER) | payer OTHER, MEDICAID ==
[~2018-12-29] VITALS: Ht 154.9 cm; Wt 104.3 kg
[2018-12-29 01:59] VITALS: BP 154/86
== END 2018-12-29 02:00 | disposition home or self-care (01) ==
LOC: M.ERS 01:19
DX: S00.411A Abrasion of right ear, initial encounter (principal); F32.9 Major depressive disorder, single episode, unspecified; J45.909 Unspecified asthma, uncomplicated; F41.9 Anxiety disorder, unspecified; I10 Essential (primary) hypertension; E11.9 Type 2 diabetes mellitus without complications; K58.9 Irritable bowel syndrome, unspecified; F17.210 Nicotine dependence, cigarettes, uncomplicated; Z88.1 Allergy status to other antibiotic agents; Z88.0 Allergy status to penicillin; Z88.6 Allergy status to analgesic agent; X58.XXXA Exposure to other specified factors, initial encounter; Y93.89 Activity, other specified; Y92.89 Other specified places as the place of occurrence of the external cause; Y99.8 Other external cause status

== ENCOUNTER 2019-01-27 02:17 | Emergency (ER) | payer OTHER, MEDICAID ==
[~2019-01-27] VITALS: Ht 154.9 cm; Wt 104.3 kg
[2019-01-27 02:48] LABS: ABSOLUTE BASOPHILS 0.1 thou/uL (0.0-0.2); ABSOLUTE EOSINOPHILS 0.1 thou/uL (0.0-0.7); ABSOLUTE MONOCYTES 0.6 thou/uL (0.0-1.2); BASOPHILS 0.7 %; EOSINOPHILS 1.2 %; HEMATOCRIT 44.9 % (37.0-47.0); HEMOGLOBIN 14.8 gm/dL (12.0-15.0); LYMPHOCYTES 40.8 %; MCH 30.5 pg (26.0-34.0); MCV 92.2 fL (80.0-100.0); MONOCYTES 6.3 %; MPV 8.7 fl. (7.2-11.1); NUCLEATED RBCS 0 /100WBC; PLATELET COUNT* 346 thou/uL (150-400); RBC 4.86 mil/uL (4.20-5.00); RDW-CV 14.6 % (10.5-14.5); WBC 9.7 thou/uL (4.0-11.0)
[2019-01-27] MEDS ORDERED: NORCO 7.5-3251 EACH PO (03:01)
[2019-01-27 03:13] VITALS: BP 137/67
[2019-01-27 03:14] LABS: CALCIUM 9.4 mg/dL (8.5-10.1); CREATININE 0.6 mg/dL (0.6-1.3)
== END 2019-01-27 03:14 | disposition home or self-care (01) ==
LOC: M.ERS 02:17
PROVIDERS: Emergency Medicine
DX: M53.3 Sacrococcygeal disorders, not elsewhere classified (principal); F17.210 Nicotine dependence, cigarettes, uncomplicated; F32.9 Major depressive disorder, single episode, unspecified; J45.909 Unspecified asthma, uncomplicated; F41.9 Anxiety disorder, unspecified; I10 Essential (primary) hypertension; E11.9 Type 2 diabetes mellitus without complications; K58.9 Irritable bowel syndrome, unspecified; Z88.1 Allergy status to other antibiotic agents; Z88.6 Allergy status to analgesic agent; Z88.8 Allergy status to other drugs, medicaments and biological substances; Z88.0 Allergy status to penicillin

== ENCOUNTER 2019-02-03 03:44 | Emergency (ER) | payer OTHER, MEDICAID ==
[~2019-02-03] VITALS: Ht 154.9 cm; Wt 100.2 kg
[~2019-02-03 03:44] MED LIST changes: +NORCO 7.5-3251 EACH PO
[2019-02-03] MEDS ORDERED: HYDROXYZINE HCL25 M1 PO (03:54)
[2019-02-03] MEDS ORDERED: AZITHROMYCIN 2250 MG PO (04:21)
[2019-02-03] MEDS ORDERED: CLEOCIN HCL150 MG PO (04:31)
[2019-02-03 04:39] VITALS: BP 134/79
--- NOTE | 2019-02-03 15:06 | EKG ---
[place] [address] ELECTROCARDIOGRAM REPORT Name: BRITTON CAT [id number] Admission: 02/03/19 Attend Phys: Discharge: 02/03/19 Date of : [birth year] Report #: [id number] THIS REPORT FOR: //name// [facility] ED Test Date: 2019-02-03 Test Time: 03:55:39 Pat Name: BRITTON CAT Department: Room: Gender: F Director Of Informatics: ALIX : 1985 Requested By: Maureen Pérez Order Number: [id number] MD: Floyd Kennedy Measurements Intervals [place] Rate: 97 P: 5 [place]: 132 QRS: 40 QRSD: 88 T: -3 QT: 340 QTc: 432 Interpretive Statements Sinus rhythm Ventricular premature complex Borderline repolarization abnormality Compared to ECG 12/24/2018 20:42:56 Sinus tachycardia no longer present Electronically Signed On 02-03-2019 15:06:09 CDT by Floyd Kennedy [email or web address] <ELECTRONICALLY SIGNED> By: Floyd Kennedy MD, [facility] 02/03/19 1506 D: 065 0355 Floyd Kennedy MD, FACC /EPI
== END 2019-02-03 04:40 | disposition home or self-care (01) ==
LOC: M.ERS 03:44
DX: L02.411 Cutaneous abscess of right axilla (principal); R07.89 Other chest pain; F17.210 Nicotine dependence, cigarettes, uncomplicated; J45.909 Unspecified asthma, uncomplicated; F41.9 Anxiety disorder, unspecified; I10 Essential (primary) hypertension; K58.9 Irritable bowel syndrome, unspecified; E11.9 Type 2 diabetes mellitus without complications; Z88.1 Allergy status to other antibiotic agents; Z88.6 Allergy status to analgesic agent; Z88.0 Allergy status to penicillin; Z79.4 Long term (current) use of insulin

== ENCOUNTER 2019-02-18 19:40 | Emergency (ER) | payer OTHER, MEDICAID ==
[~2019-02-18] VITALS: Ht 154.9 cm; Wt 103.0 kg
[~2019-02-18 19:40] MED LIST changes: +HYDROXYZINE HCL25 M1 PO
[2019-02-18 19:52] VITALS: BP 149/83
--- NOTE | 2019-02-19 16:46 | EKG ---
[place] [address] ELECTROCARDIOGRAM REPORT Name: BRITTON CAT Room: [facility]#: [id number] Admission: 02/18/19 Attend Phys: Discharge: 02/18/19 Date of : [birth year] Report #: [id number] THIS REPORT FOR: //name// [facility] ED Test Date: 2019-02-18 Test Time: 19:54:58 Pat Name: BRITTON CAT Department: Room: Gender: F Lumber Cutter: SEBAS : 1985 Requested By: Gage Huerta Order Number: [id number] MD: Gianfranco Aparicio Measurements Intervals [place] Rate: 107 P: 27 [place]: 143 QRS: 53 QRSD: 83 T: 12 QT: 315 QTc: 421 Interpretive Statements Sinus tachycardia Possible left atrial enlargement Minimal ST depression, diffuse leads Baseline wander in lead(s) V1,V2,V4,V5 Compared to ECG 02/03/2019 03:55:39 ST (T wave) deviation now present Sinus rhythm no longer present Ventricular premature complex(es) no longer present Electronically Signed On 02-19-2019 16:46:37 CDT by Gianfranco Aparicio [email or web address] <ELECTRONICALLY SIGNED> By: Gianfranco Aparicio MD, FACC 02/19/19 1646 53 53 Gianfranco Aparicio MD, FACC /EPI
== END 2019-02-18 20:22 | disposition home or self-care (01) ==
LOC: M.ERS 19:40
DX: R42 Dizziness and giddiness (principal); F32.9 Major depressive disorder, single episode, unspecified; J45.909 Unspecified asthma, uncomplicated; I10 Essential (primary) hypertension; E11.9 Type 2 diabetes mellitus without complications; K58.9 Irritable bowel syndrome, unspecified; F17.210 Nicotine dependence, cigarettes, uncomplicated; Z88.0 Allergy status to penicillin; Z88.1 Allergy status to other antibiotic agents; Z88.6 Allergy status to analgesic agent

== ENCOUNTER 2019-02-20 17:54 | Emergency (ER) | payer OTHER, MEDICAID ==
[~2019-02-20] VITALS: Ht 154.9 cm; Wt 102.1 kg
[2019-02-20] MEDS ORDERED: ZANTAC 150MG T150 MG PO (18:14)
[2019-02-20] MEDS ORDERED: BENTYL 20 MG TA20 M1 PO (18:14)
[2019-02-20 18:46] LABS: ABSOLUTE BASOPHILS 0.1 thou/uL (0.0-0.2); ABSOLUTE EOSINOPHILS 0.1 thou/uL (0.0-0.7); ABSOLUTE LYMPHOCYTES 2.9 thou/uL (0.8-5.3); ABSOLUTE MONOCYTES 0.5 thou/uL (0.0-1.2); ABSOLUTE NEUTROPHILS 5.7 thou/uL (1.6-8.1); BASOPHILS 1.2 %; EOSINOPHILS 1.2 %; HEMATOCRIT 43.6 % (37.0-47.0); HEMOGLOBIN 14.6 gm/dL (12.0-15.0); LYMPHOCYTES 31.3 %; MCH 30.8 pg (26.0-34.0); MCHC 33.4 g/dL (28.0-37.0); MCV 92.3 fL (80.0-100.0); MONOCYTES 5.6 %; MPV 8.7 fl. (7.2-11.1); NUCLEATED RBCS 0 /100WBC; PLATELET COUNT* 361 thou/uL (150-400); POLYS 60.7 %; RBC 4.72 mil/uL (4.20-5.00); RDW-CV 14.1 % (10.5-14.5); WBC 9.4 thou/uL (4.0-11.0)
[2019-02-20 18:54] LABS: CALCIUM 8.7 mg/dL (8.5-10.1); CREATININE 0.8 mg/dL (0.6-1.3); POTASSIUM 4.2 mmol/L (3.5-5.1)
[2019-02-20 18:58] LABS: ALBUMIN 3.5 g/dL (3.4-5.0)
[2019-02-20 19:10] LABS: TOTAL BILIRUBIN 0.3 mg/dL (<0.1-1.0); TOTAL PROTEIN 7.1 g/dL (6.4-8.2)
[2019-02-20 20:00] VITALS: BP 143/87
== END 2019-02-20 20:01 | disposition home or self-care (01) ==
LOC: M.ERS 17:54
PROVIDERS: Personal Emergency Response Attendant
DX: R42 Dizziness and giddiness (principal)

== ENCOUNTER 2019-02-23 23:39 | Emergency (ER) | payer OTHER, MEDICAID ==
[~2019-02-23] VITALS: Ht 154.9 cm; Wt 117.9 kg
[2019-02-24 01:15] VITALS: BP 112/70
[2019-03-05] MEDS ORDERED: ZOFRAN ODT4 MG DISSOLVE ×2 (00:11→00:42)
== END 2019-02-24 01:16 | disposition home or self-care (01) ==
LOC: M.ERS 23:39
DX: M25.531 Pain in right wrist (principal); F32.3 Major depressive disorder, single episode, severe with psychotic features; J45.909 Unspecified asthma, uncomplicated; F41.9 Anxiety disorder, unspecified; I10 Essential (primary) hypertension; E11.9 Type 2 diabetes mellitus without complications; F17.210 Nicotine dependence, cigarettes, uncomplicated; Z88.0 Allergy status to penicillin; Z88.1 Allergy status to other antibiotic agents; Z88.8 Allergy status to other drugs, medicaments and biological substances

== ENCOUNTER 2019-03-10 20:13 | Emergency (ER) | payer OTHER, MEDICAID ==
[~2019-03-10] VITALS: Ht 154.9 cm; Wt 102.1 kg
[~2019-03-10 20:13] MED LIST changes: +ZOFRAN ODT4 MG DISSOLVE
[2019-03-10 21:07] LABS: ABSOLUTE BASOPHILS 0.1 thou/uL (0.0-0.2); ABSOLUTE EOSINOPHILS 0.1 thou/uL (0.0-0.7); ABSOLUTE LYMPHOCYTES 2.6 thou/uL (0.8-5.3); ABSOLUTE MONOCYTES 0.5 thou/uL (0.0-1.2); ABSOLUTE NEUTROPHILS 6.3 thou/uL (1.6-8.1); BASOPHILS 1.1 %; EOSINOPHILS 1.3 %; HEMATOCRIT 44.2 % (37.0-47.0); HEMOGLOBIN 14.6 gm/dL (12.0-15.0); LYMPHOCYTES 26.7 %; MCH 30.7 pg (26.0-34.0); MCHC 33.1 g/dL (28.0-37.0); MCV 92.8 fL (80.0-100.0); MONOCYTES 5.3 %; MPV 8.8 fl. (7.2-11.1); NUCLEATED RBCS 0 /100WBC; PLATELET COUNT* 388 thou/uL (150-400); POLYS 65.6 %; RBC 4.76 mil/uL (4.20-5.00); WBC 9.6 thou/uL (4.0-11.0)
[2019-03-10 21:10] LABS: CALCIUM 9.1 mg/dL (8.5-10.1); CREATININE 0.6 mg/dL (0.6-1.3); POTASSIUM 3.6 mmol/L (3.5-5.1)
[2019-03-10 21:13] LABS: URINE BLOOD 1+ (Negative); URINE CLARITY CLEAR; URINE COLOR YELLOW; URINE GLUCOSE-RANDOM 2+ (Negative); URINE KETONES NEGATIVE (Negative); URINE LEUKOCYTES NEGATIVE (Negative); URINE NITRITE NEGATIVE (Negative); URINE PROTEIN NEGATIVE (Negative); URINE SPECIFIC GRAVITY 1.025 (1.005-1.030); URINE UROBILINOGEN 0.2 E.U./dl (0.2-1.0)
[2019-03-10 21:14] LABS: ALBUMIN 3.7 g/dL (3.4-5.0); TOTAL BILIRUBIN 0.3 mg/dL (<0.1-1.0); TOTAL PROTEIN 7.6 g/dL (6.4-8.2)
[2019-03-10 21:17] LABS: ICTOTEST (BILI CONFIRMATORY) Negative (Negative); URINE BILIRUBIN 1+ (Negative)
[2019-03-10 21:23] LABS: BACTERIA 1-9 Few /HPF (None Seen); CASTS None Seen /LPF (None Seen); CRYSTALS None Seen /LPF (None Seen); SQUAMOUS 0-3 Few /LPF (0-3); URINE RBC 0-2 Rare /HPF (0-2); URINE WBC 0-5 Rare /HPF (0-5)
[2019-03-10 22:04] VITALS: BP 144/89
== END 2019-03-10 22:04 | disposition home or self-care (01) ==
LOC: M.ERS 20:13
PROVIDERS: Nurse Practitioner Family
DX: R11.2 Nausea with vomiting, unspecified (principal); J45.909 Unspecified asthma, uncomplicated; F41.9 Anxiety disorder, unspecified; E11.9 Type 2 diabetes mellitus without complications; F32.9 Major depressive disorder, single episode, unspecified; I10 Essential (primary) hypertension; K58.9 Irritable bowel syndrome, unspecified; F17.210 Nicotine dependence, cigarettes, uncomplicated; Z88.0 Allergy status to penicillin; Z88.1 Allergy status to other antibiotic agents; Z88.8 Allergy status to other drugs, medicaments and biological substances

== ENCOUNTER 2019-03-17 14:30 | Emergency (ER) | payer OTHER, MEDICAID ==
[~2019-03-17] VITALS: Ht 154.9 cm; Wt 102.1 kg
[2019-03-17] MEDS ORDERED: IBUPROFEN 800800 M1 PO (16:53)
[2019-03-17 17:05] VITALS: BP 121/75
== END 2019-03-17 17:06 | disposition home or self-care (01) ==
LOC: M.ERS 14:30
DX: S83.91XA Sprain of unspecified site of right knee, initial encounter (principal); J45.909 Unspecified asthma, uncomplicated; F41.9 Anxiety disorder, unspecified; I10 Essential (primary) hypertension; E11.9 Type 2 diabetes mellitus without complications; K58.9 Irritable bowel syndrome, unspecified; F20.9 Schizophrenia, unspecified; F17.210 Nicotine dependence, cigarettes, uncomplicated; Z88.0 Allergy status to penicillin; Z88.1 Allergy status to other antibiotic agents; Z88.8 Allergy status to other drugs, medicaments and biological substances; X50.1XXA Overexertion from prolonged static or awkward postures, initial encounter; Y93.01 Activity, walking, marching and hiking; Y92.89 Other specified places as the place of occurrence of the external cause; Y99.8 Other external cause status

== ENCOUNTER 2019-03-21 21:55 | Emergency (ER) | payer OTHER, MEDICAID ==
[~2019-03-21] VITALS: Ht 154.9 cm; Wt 102.1 kg
[2019-03-21 22:00] VITALS: BP 153/76
[2019-03-21 22:32] LABS: ABSOLUTE BASOPHILS 0.1 thou/uL (0.0-0.2); ABSOLUTE EOSINOPHILS 0.1 thou/uL (0.0-0.7); ABSOLUTE LYMPHOCYTES 3.5 thou/uL (0.8-5.3); ABSOLUTE MONOCYTES 0.7 thou/uL (0.0-1.2); ABSOLUTE NEUTROPHILS 5.6 thou/uL (1.6-8.1); EOSINOPHILS 1.3 %; HEMATOCRIT 44.8 % (37.0-47.0); HEMOGLOBIN 14.9 gm/dL (12.0-15.0); LYMPHOCYTES 34.6 %; MCH 30.7 pg (26.0-34.0); MCHC 33.2 g/dL (28.0-37.0); MCV 92.6 fL (80.0-100.0); MONOCYTES 7.3 %; MPV 8.5 fl. (7.2-11.1); NUCLEATED RBCS 0 /100WBC; PLATELET COUNT* 384 thou/uL (150-400); POLYS 55.8 %; RBC 4.84 mil/uL (4.20-5.00); RDW-CV 15.3 % (10.5-14.5)
[2019-03-21 22:36] LABS: URINE BILIRUBIN NEGATIVE (Negative); URINE BLOOD NEGATIVE (Negative); URINE CLARITY CLEAR; URINE COLOR YELLOW; URINE GLUCOSE-RANDOM 2+ (Negative); URINE KETONES NEGATIVE (Negative); URINE LEUKOCYTES-REFLEX TRACE (Negative); URINE NITRITE-REFLEX NEGATIVE (Negative); URINE PROTEIN NEGATIVE (Negative); URINE SPECIFIC GRAVITY 1.025 (1.005-1.030); URINE UROBILINOGEN 0.2 E.U./dl (0.2-1.0)
[2019-03-21 22:41] LABS: ANION GAP 12 mmol/L (7-16); BUN 8 mg/dL (7-18); CALCIUM 9.7 mg/dL (8.5-10.1); CHLORIDE 103 mmol/L (98-107); CO2 23 mmol/L (21-32); CREATININE 0.6 mg/dL (0.6-1.3); GLUCOSE 162 mg/dL (70-99); POTASSIUM 3.7 mmol/L (3.5-5.1); SODIUM 138 mmol/L (136-145)
[2019-03-21 22:45] LABS: BACTERIA-REFLEX >30 Many /HPF (None Seen); CASTS None Seen /LPF (None Seen); CRYSTALS None Seen /LPF (None Seen); MUCUS 4-6 Moderate strn/LPF (None Seen); SQUAMOUS 4-10 Moderate /LPF (0-3); URINE RBC 0-2 Rare /HPF (0-2); URINE WBC-REFLEX 6-15 Few /HPF (0-5)
[2019-03-21 22:47] LABS: AMP/METHAMP Negative (Negative); BARBITURATES Negative (Negative); BENZODIAZEPINES Negative (Negative); COCAINE Negative (Negative); METHADONE Negative (Negative); OPIATES Negative (Negative); PCP Negative (Negative); THC Negative (Negative)
[2019-03-21 22:55] LABS: ALBUMIN 3.6 g/dL (3.4-5.0); ALKALINE PHOSPHATASE 87 U/L (46-116); LIPASE 196 U/L (73-393); MAGNESIUM 1.6 mg/dL (1.8-2.4); NT-PRO BRAIN NAT PEPTIDE 12 pg/mL (<300); SGOT 32 U/L (15-37); SGPT 81 U/L (30-65); TOTAL BILIRUBIN 0.2 mg/dL (<0.1-1.0); TOTAL PROTEIN 7.5 g/dL (6.4-8.2); TROPONIN-I LEVEL <0.06 ng/mL (<0.06)
--- NOTE | 2019-03-22 00:39 | NUR ---
THIS RN INTO ROOM TO TRANSPORT PT UPSTAIRS. PT VERY UPSET AND RIPPING OFF MONITORING EQUIPMENT. PT STATING THAT SHE DOES NOT WANT TO BE ADMITTED AND SHE WANTS TO GO HOME. WHEN ASKED WHY SHE WANTS TO GO HOME PT STATES "THE TOLD ME I COULD DECIDE IF I WANTED TO STAY OR GO HOME. AND HE NEVER CAME BACK INTO MY ROOM TO ASK ME WHAT I DECIDED. I WAS NEVER GIVEN A CHOICE. SO I WANT TO LEAVE" THIS RN EXPLAINED TO PT THAT SHE HAS CHOICE WHETHER SHE STAYS OR GOES. BUT PT WAS ADAMANT THAT SHE DID NOT FEEL LIKE SHE HAD A CHOICE. DR. CHANG WAS NOTIFIED OF PTS CONCERNS. DR. CHANG INTO ROOM TO SPEAK WITH PT AND EXPLAINED THAT HIS RECOMMENDATION IS THAT SHE STAYS IN THE HOSPITAL. PT AGAIN REFUSING TO STAY AND STATING THAT SHE DID NOT FEEL LIKE SHE HAS A CHOICE. UPON DISCHARGE, PT REFUSED TO SIGN AMA PAPERWORK AND STORMED OUT OF ED WITH STEADY GAIT VERY ANGRY.
[2019-03-22 00:43] VITALS: BP 115/46
--- NOTE | 2019-03-22 11:35 | EKG ---
[place] [address] ELECTROCARDIOGRAM REPORT Name: BRITTON CAT Room: [facility]#: [id number] Admission: 03/21/19 Attend Phys: Discharge: 03/22/19 Date of : [birth year] Report #: [id number] THIS REPORT FOR: //name// [facility] ED Test Date: 2019-03-21 Test Time: 22:00:22 Pat Name: BRITTON CAT Department: Room: [facility] Gender: F Joist Setter: NISHI : 1985 Requested By: Kenan Frederick Order Number: [id number] MD: Gianfranco Aparicio Measurements Intervals [place] Rate: 116 P: 33 [place]: 128 QRS: 51 QRSD: 90 T: -17 QT: 308 QTc: 428 Interpretive Statements Sinus tachycardia Ventricular premature complex Compared to ECG 02/18/2019 19:54:58 Ventricular premature complex(es) now present ST (T wave) deviation no longer present Electronically Signed On 03-22-2019 11:35:25 CDT by Gianfranco Aparicio [email or web address] <ELECTRONICALLY SIGNED> By: Gianfranco Aparicio MD, [facility] 03/22/19 1135 99 99 Gianfranco Aparicio MD, [facility] /EPI
[2019-03-22] MEDS ORDERED: XANAX 1 MG TABLE1 MG PO (17:06)
== END 2019-03-22 00:46 | disposition left against medical advice (07) ==
LOC: M.ERS 21:55 → M.TBA-ER 23:38 → M.ERS 03-22 00:46
PROVIDERS: Emergency Medicine Emergency Medical Services
DX: I63.9 Cerebral infarction, unspecified (principal); R07.89 Other chest pain; F32.9 Major depressive disorder, single episode, unspecified; J45.909 Unspecified asthma, uncomplicated; E11.9 Type 2 diabetes mellitus without complications; I10 Essential (primary) hypertension; K58.9 Irritable bowel syndrome, unspecified; F20.9 Schizophrenia, unspecified; F41.9 Anxiety disorder, unspecified; F17.210 Nicotine dependence, cigarettes, uncomplicated; Z88.6 Allergy status to analgesic agent; Z88.1 Allergy status to other antibiotic agents; Z88.0 Allergy status to penicillin

== ENCOUNTER 2019-03-22 16:21 | Emergency (ER) | payer OTHER, MEDICAID ==
[~2019-03-22] VITALS: Ht 154.9 cm; Wt 102.1 kg
[2019-03-22 16:50] LABS: ABSOLUTE BASOPHILS 0.1 thou/uL (0.0-0.2); ABSOLUTE EOSINOPHILS 0.1 thou/uL (0.0-0.7); ABSOLUTE LYMPHOCYTES 2.5 thou/uL (0.8-5.3); ABSOLUTE MONOCYTES 0.6 thou/uL (0.0-1.2); ABSOLUTE NEUTROPHILS 6.5 thou/uL (1.6-8.1); BASOPHILS 1.1 %; EOSINOPHILS 0.8 %; HEMATOCRIT 43.9 % (37.0-47.0); MCH 31.3 pg (26.0-34.0); MCHC 34.2 g/dL (28.0-37.0); MCV 91.4 fL (80.0-100.0); MONOCYTES 6.3 %; MPV 8.8 fl. (7.2-11.1); NUCLEATED RBCS 0 /100WBC; PLATELET COUNT* 382 thou/uL (150-400); POLYS 66.8 %; RDW-CV 15.4 % (10.5-14.5); WBC 9.8 thou/uL (4.0-11.0)
[2019-03-22 16:57] LABS: CALCIUM 9.8 mg/dL (8.5-10.1); CREATININE 0.6 mg/dL (0.6-1.3); POTASSIUM 3.8 mmol/L (3.5-5.1)
[2019-03-22 17:02] LABS: ALBUMIN 3.6 g/dL (3.4-5.0); TOTAL BILIRUBIN 0.3 mg/dL (<0.1-1.0); TOTAL PROTEIN 7.5 g/dL (6.4-8.2)
[2019-03-22] MEDS ORDERED: XANAX 1 MG TABLE1 MG PO (17:06)
[2019-03-22 17:21] VITALS: BP 94/77
== END 2019-03-22 17:21 | disposition home or self-care (01) ==
LOC: M.ERS 16:21
PROVIDERS: Family Medicine
DX: F41.0 Panic disorder [episodic paroxysmal anxiety] (principal); I10 Essential (primary) hypertension; F32.9 Major depressive disorder, single episode, unspecified; E11.9 Type 2 diabetes mellitus without complications; F20.9 Schizophrenia, unspecified; J45.909 Unspecified asthma, uncomplicated; F17.210 Nicotine dependence, cigarettes, uncomplicated; K58.9 Irritable bowel syndrome, unspecified; Z88.1 Allergy status to other antibiotic agents; Z88.6 Allergy status to analgesic agent; Z88.0 Allergy status to penicillin

== ENCOUNTER 2019-03-30 15:57 | Emergency (ER) | payer OTHER, MEDICAID ==
[~2019-03-30] VITALS: Ht 154.9 cm; Wt 102.1 kg
[~2019-03-30 15:57] MED LIST changes: +XANAX 1 MG TABLE1 MG PO
[2019-03-30] MEDS ORDERED: CIPRO250 M1 PO (16:07)
[2019-03-30] MEDS ORDERED: IBUPROFEN 600600 M1 PO (17:09)
[2019-03-30 17:15] VITALS: BP 154/85
== END 2019-03-30 17:15 | disposition home or self-care (01) ==
LOC: M.ERS 15:57
DX: S82.52XA Displaced fracture of medial malleolus of left tibia, initial encounter for closed fracture (principal); F32.9 Major depressive disorder, single episode, unspecified; F41.9 Anxiety disorder, unspecified; E11.9 Type 2 diabetes mellitus without complications; K58.9 Irritable bowel syndrome, unspecified; F20.9 Schizophrenia, unspecified; J45.909 Unspecified asthma, uncomplicated; F17.210 Nicotine dependence, cigarettes, uncomplicated; Z88.1 Allergy status to other antibiotic agents; Z88.6 Allergy status to analgesic agent; Z88.0 Allergy status to penicillin; Z88.8 Allergy status to other drugs, medicaments and biological substances; W22.8XXA Striking against or struck by other objects, initial encounter; Y93.89 Activity, other specified; Y92.481 Parking lot as the place of occurrence of the external cause; Y99.8 Other external cause status

== ENCOUNTER 2019-05-01 01:32 | Emergency (ER) | payer OTHER, MEDICAID ==
[~2019-05-01] VITALS: Ht 154.9 cm; Wt 104.3 kg
[~2019-05-01 01:32] MED LIST changes: +CIPRO250 M1 PO; +IBUPROFEN 600600 M1 PO
[2019-05-01] MEDS ORDERED: FLONASE 0.05%50 MCG NASAL (02:07)
[2019-05-01] MEDS ORDERED: PREDNISONE50 MG PO (02:07)
[2019-05-01 02:21] VITALS: BP 176/74
== END 2019-05-01 02:21 | disposition home or self-care (01) ==
LOC: M.ERS 01:32
DX: H92.01 Otalgia, right ear (principal); J45.909 Unspecified asthma, uncomplicated; I10 Essential (primary) hypertension; E11.9 Type 2 diabetes mellitus without complications; K58.9 Irritable bowel syndrome, unspecified; F41.9 Anxiety disorder, unspecified; F20.9 Schizophrenia, unspecified; F60.9 Personality disorder, unspecified; F17.210 Nicotine dependence, cigarettes, uncomplicated; Z88.0 Allergy status to penicillin; Z88.1 Allergy status to other antibiotic agents; Z88.6 Allergy status to analgesic agent; Z88.8 Allergy status to other drugs, medicaments and biological substances

== ENCOUNTER 2019-05-08 22:10 | Emergency (ER) | payer OTHER, MEDICAID ==
[~2019-05-08] VITALS: Ht 154.9 cm; Wt 104.3 kg
[2019-05-08 22:38] LABS: ABSOLUTE BASOPHILS 0.1 thou/uL (0.0-0.2); ABSOLUTE EOSINOPHILS 0.1 thou/uL (0.0-0.7); ABSOLUTE LYMPHOCYTES 4.1 thou/uL (0.8-5.3); ABSOLUTE MONOCYTES 0.6 thou/uL (0.0-1.2); ABSOLUTE NEUTROPHILS 6.4 thou/uL (1.6-8.1); EOSINOPHILS 1.3 %; HEMATOCRIT 45.4 % (37.0-47.0); HEMOGLOBIN 15.4 gm/dL (12.0-15.0); LYMPHOCYTES 36.1 %; MCH 31.3 pg (26.0-34.0); MCHC 33.9 g/dL (28.0-37.0); MCV 92.3 fL (80.0-100.0); MONOCYTES 5.4 %; MPV 8.9 fl. (7.2-11.1); NUCLEATED RBCS 0 /100WBC; PLATELET COUNT* 372 thou/uL (150-400); POLYS 56.2 %; RBC 4.92 mil/uL (4.20-5.00); RDW-CV 14.8 % (10.5-14.5); WBC 11.3 thou/uL (4.0-11.0)
[2019-05-08 22:48] LABS: CALCIUM 9.3 mg/dL (8.5-10.1); CREATININE 0.6 mg/dL (0.6-1.3); POTASSIUM 3.9 mmol/L (3.5-5.1)
[2019-05-08 22:52] LABS: ALBUMIN 3.8 g/dL (3.4-5.0); TOTAL BILIRUBIN 0.1 mg/dL (<0.1-1.0); TOTAL PROTEIN 7.6 g/dL (6.4-8.2)
[2019-05-09 00:43] VITALS: BP 117/67
== END 2019-05-09 00:44 | disposition home or self-care (01) ==
LOC: M.ERS 22:10
PROVIDERS: Family Medicine
DX: R10.31 Right lower quadrant pain (principal); R19.7 Diarrhea, unspecified; I10 Essential (primary) hypertension; F32.9 Major depressive disorder, single episode, unspecified; E11.9 Type 2 diabetes mellitus without complications; K58.9 Irritable bowel syndrome, unspecified; F20.9 Schizophrenia, unspecified; F17.210 Nicotine dependence, cigarettes, uncomplicated; Z88.0 Allergy status to penicillin; Z88.1 Allergy status to other antibiotic agents; Z88.6 Allergy status to analgesic agent; Z88.8 Allergy status to other drugs, medicaments and biological substances

== ENCOUNTER 2019-05-17 21:23 | Emergency (ER) | payer OTHER, MEDICAID ==
[~2019-05-17] VITALS: Ht 154.9 cm; Wt 104.3 kg
[2019-05-17 21:27] VITALS: BP 157/78
[2019-05-17] MEDS ORDERED: NORCO 5-325 TA1 EAC1 PO (21:35)
== END 2019-05-17 21:49 | disposition home or self-care (01) ==
LOC: M.ERS 21:23
DX: H92.03 Otalgia, bilateral (principal); J45.909 Unspecified asthma, uncomplicated; F32.9 Major depressive disorder, single episode, unspecified; I10 Essential (primary) hypertension; E11.9 Type 2 diabetes mellitus without complications; F20.9 Schizophrenia, unspecified; K58.9 Irritable bowel syndrome, unspecified; F41.9 Anxiety disorder, unspecified; F17.210 Nicotine dependence, cigarettes, uncomplicated; Z88.1 Allergy status to other antibiotic agents; Z88.6 Allergy status to analgesic agent

== ENCOUNTER 2019-05-20 01:26 | Emergency (ER) | payer OTHER, MEDICAID ==
[~2019-05-20] VITALS: Ht 154.9 cm; Wt 104.3 kg
[~2019-05-20 01:26] MED LIST changes: +NORCO 5-325 TA1 EAC1 PO
[2019-05-20 01:30] VITALS: BP 143/74
[2019-05-20] MEDS ORDERED: ZPAK PO (01:55)
[2019-05-20] MEDS ORDERED: PREDNISONE 20 M20 M1 PO (01:55)
== END 2019-05-20 02:05 | disposition home or self-care (01) ==
LOC: M.ERS 01:26
DX: J45.909 Unspecified asthma, uncomplicated (principal); I10 Essential (primary) hypertension; E11.9 Type 2 diabetes mellitus without complications; F41.9 Anxiety disorder, unspecified; K58.9 Irritable bowel syndrome, unspecified; F20.9 Schizophrenia, unspecified; F17.210 Nicotine dependence, cigarettes, uncomplicated; Z88.0 Allergy status to penicillin; Z88.1 Allergy status to other antibiotic agents; Z88.6 Allergy status to analgesic agent

== ENCOUNTER 2019-05-31 00:10 | Emergency (ER) | payer OTHER, MEDICAID ==
[~2019-05-31] VITALS: Ht 154.9 cm; Wt 104.3 kg
[~2019-05-31 00:10] MED LIST changes: +PREDNISONE 20 M20 M1 PO
[2019-05-31] MEDS ORDERED: PREDNISONE50 MG PO (01:02)
[2019-05-31 01:16] VITALS: BP 147/62
== END 2019-05-31 01:18 | disposition home or self-care (01) ==
LOC: M.ERS 00:10
DX: E11.40 Type 2 diabetes mellitus with diabetic neuropathy, unspecified (principal); F32.9 Major depressive disorder, single episode, unspecified; J45.909 Unspecified asthma, uncomplicated; F41.9 Anxiety disorder, unspecified; I10 Essential (primary) hypertension; K58.9 Irritable bowel syndrome, unspecified; F20.9 Schizophrenia, unspecified; F17.210 Nicotine dependence, cigarettes, uncomplicated; Z88.1 Allergy status to other antibiotic agents; Z88.0 Allergy status to penicillin; Z88.6 Allergy status to analgesic agent

== ENCOUNTER 2019-06-22 01:07 | Emergency (ER) | payer OTHER, MEDICAID ==
[~2019-06-22] VITALS: Ht 154.9 cm; Wt 104.3 kg
[2019-06-22] MEDS ORDERED: PEPCID20 MG PO (01:21)
[2019-06-22] MEDS ORDERED: GENTAK5 ML EA. EYE (01:46)
[2019-06-22 01:54] VITALS: BP 149/90
== END 2019-06-22 01:55 | disposition home or self-care (01) ==
LOC: M.ERS 01:07
DX: B30.9 Viral conjunctivitis, unspecified (principal); R22.0 Localized swelling, mass and lump, head; F32.9 Major depressive disorder, single episode, unspecified; J45.909 Unspecified asthma, uncomplicated; F41.9 Anxiety disorder, unspecified; I10 Essential (primary) hypertension; E11.9 Type 2 diabetes mellitus without complications; K58.9 Irritable bowel syndrome, unspecified; F20.9 Schizophrenia, unspecified; F17.210 Nicotine dependence, cigarettes, uncomplicated; Z88.1 Allergy status to other antibiotic agents; Z88.0 Allergy status to penicillin; Z88.6 Allergy status to analgesic agent

== ENCOUNTER 2019-06-24 18:39 | Emergency (ER) | payer OTHER, MEDICAID ==
[~2019-06-24] VITALS: Ht 154.9 cm; Wt 104.3 kg
[~2019-06-24 18:39] MED LIST changes: +GENTAK5 ML EA. EYE; +PEPCID20 MG PO
[2019-06-24 18:46] VITALS: BP 150/73
[2019-06-24] MEDS ORDERED: NABUMETONE 750750 M1 PO (19:13)
[2019-06-24] MEDS ORDERED: CLEOCIN HCL300 MG PO (19:13)
== END 2019-06-24 19:16 | disposition home or self-care (01) ==
LOC: M.ERS 18:39
DX: K08.89 Other specified disorders of teeth and supporting structures (principal); I10 Essential (primary) hypertension; E11.9 Type 2 diabetes mellitus without complications; K58.9 Irritable bowel syndrome, unspecified; F20.9 Schizophrenia, unspecified; F32.9 Major depressive disorder, single episode, unspecified; F41.9 Anxiety disorder, unspecified; F17.210 Nicotine dependence, cigarettes, uncomplicated; Z88.0 Allergy status to penicillin; Z88.1 Allergy status to other antibiotic agents; Z88.8 Allergy status to other drugs, medicaments and biological substances

== ENCOUNTER 2019-07-11 01:48 | Emergency (ER) | payer OTHER, MEDICAID ==
[~2019-07-11] VITALS: Ht 154.9 cm; Wt 104.3 kg
[2019-07-11] MEDS ORDERED: LOTEMAX3.5 GM OPHTHALMIC (02:08)
[2019-07-11] MEDS ORDERED: HYDROCORTISONE30 G4 TOP (02:33)
[2019-07-11 02:49] VITALS: BP 145/73
== END 2019-07-11 02:50 | disposition home or self-care (01) ==
LOC: M.ERS 01:48
DX: R21 Rash and other nonspecific skin eruption (principal); F17.210 Nicotine dependence, cigarettes, uncomplicated; F41.9 Anxiety disorder, unspecified; F20.9 Schizophrenia, unspecified; I10 Essential (primary) hypertension; F32.9 Major depressive disorder, single episode, unspecified; J45.909 Unspecified asthma, uncomplicated; E11.9 Type 2 diabetes mellitus without complications; Z88.1 Allergy status to other antibiotic agents; Z88.0 Allergy status to penicillin; Z88.8 Allergy status to other drugs, medicaments and biological substances

== ENCOUNTER 2019-08-17 19:16 | Emergency (ER) | payer OTHER, MEDICAID ==
[~2019-08-17] VITALS: Ht 170.2 cm; Wt 104.3 kg
[~2019-08-17 19:16] MED LIST changes: +HYDROCORTISONE30 G4 TOP; +LOTEMAX3.5 GM OPHTHALMIC
[2019-08-17] MEDS ORDERED: DOXYCYCLINE 10100 M2 PO (19:56)
[2019-08-17 20:20] VITALS: BP 132/80
== END 2019-08-17 20:21 | disposition home or self-care (01) ==
LOC: M.ERS 19:16
DX: H04.3 Acute and unspecified inflammation of lacrimal passages (principal); I10 Essential (primary) hypertension; F41.9 Anxiety disorder, unspecified; E11.9 Type 2 diabetes mellitus without complications; F20.9 Schizophrenia, unspecified; J45.909 Unspecified asthma, uncomplicated; F32.9 Major depressive disorder, single episode, unspecified; F17.210 Nicotine dependence, cigarettes, uncomplicated; Z88.1 Allergy status to other antibiotic agents; Z88.6 Allergy status to analgesic agent; Z88.0 Allergy status to penicillin

== ENCOUNTER 2019-09-06 20:21 | Emergency (ER) | payer OTHER, MEDICAID ==
[~2019-09-06] VITALS: Ht 154.9 cm; Wt 104.3 kg
[~2019-09-06 20:21] MED LIST changes: +DOXYCYCLINE 10100 M2 PO
[2019-09-06] MEDS ORDERED: METFORMIN HCL500 M3 PO (20:35)
[2019-09-06] MEDS ORDERED: ALPRAZOLAM0.5 M1 PO (20:36)
[2019-09-06 21:31] LABS: INFLUENZA A ANTIGEN Negative (Negative); INFLUENZA B ANTIGEN Negative (Negative)
[2019-09-06 23:43] LABS: ABSOLUTE BASOPHILS 0.1 thou/uL (0.0-0.2); ABSOLUTE EOSINOPHILS 0.2 thou/uL (0.0-0.7); ABSOLUTE LYMPHOCYTES 3.9 thou/uL (0.8-5.3); ABSOLUTE MONOCYTES 0.6 thou/uL (0.0-1.2); ABSOLUTE NEUTROPHILS 4.7 thou/uL (1.6-8.1); EOSINOPHILS 1.8 %; HEMATOCRIT 42.4 % (37.0-47.0); HEMOGLOBIN 14.3 gm/dL (12.0-15.0); LYMPHOCYTES 41.7 %; MCH 30.8 pg (26.0-34.0); MCHC 33.7 g/dL (28.0-37.0); MCV 91.3 fL (80.0-100.0); MPV 8.5 fl. (7.2-11.1); NUCLEATED RBCS 0 /100WBC; PLATELET COUNT* 375 thou/uL (150-400); POLYS 49.5 %; RBC 4.64 mil/uL (4.20-5.00); RDW-CV 14.6 % (10.5-14.5); WBC 9.5 thou/uL (4.0-11.0)
[2019-09-06 23:50] LABS: CALCIUM 8.4 mg/dL (8.5-10.1); CREATININE 0.6 mg/dL (0.6-1.3); POTASSIUM 3.6 mmol/L (3.5-5.1)
[2019-09-07 00:15] LABS: URINE BILIRUBIN NEGATIVE (Negative); URINE BLOOD 2+ (Negative); URINE CLARITY CLEAR; URINE COLOR YELLOW; URINE GLUCOSE-RANDOM 2+ (Negative); URINE KETONES NEGATIVE (Negative); URINE LEUKOCYTES-REFLEX NEGATIVE (Negative); URINE NITRITE-REFLEX NEGATIVE (Negative); URINE PROTEIN NEGATIVE (Negative); URINE SPECIFIC GRAVITY 1.015 (1.005-1.030); URINE UROBILINOGEN 0.2 E.U./dl (0.2-1.0)
[2019-09-07] MEDS ORDERED: PHENERGAN 25 MG25 M1 PO (00:29)
[2019-09-07 00:34] LABS: BACTERIA-REFLEX >30 Many /HPF (None Seen); CASTS None Seen /LPF (None Seen); CRYSTALS None Seen /LPF (None Seen); MUCUS 4-6 Moderate strn/LPF (None Seen); SQUAMOUS 4-10 Moderate /LPF (0-3); TRANSITIONAL EPITHEL CELL 0-3 Few /LPF (None Seen); URINE RBC 3-10 Few /HPF (0-2); URINE WBC-REFLEX 0-5 Rare /HPF (0-5)
[2019-09-07 00:45] VITALS: BP 150/80
== END 2019-09-07 00:45 | disposition home or self-care (01) ==
LOC: M.ERS 20:21
PROVIDERS: Emergency Medicine; Physician Assistant
DX: R11.2 Nausea with vomiting, unspecified (principal); R19.7 Diarrhea, unspecified; J45.909 Unspecified asthma, uncomplicated; I10 Essential (primary) hypertension; E11.9 Type 2 diabetes mellitus without complications; K58.9 Irritable bowel syndrome, unspecified; F17.210 Nicotine dependence, cigarettes, uncomplicated; Z88.1 Allergy status to other antibiotic agents; Z88.0 Allergy status to penicillin; Z88.6 Allergy status to analgesic agent

== ENCOUNTER → 2019-09-18 | Outpatient (CLI) | payer OTHER, MEDICAID ==
[~2019-09-18] MED LIST changes: +ALPRAZOLAM0.5 M1 PO; +METFORMIN HCL500 M3 PO; +PHENERGAN 25 MG25 M1 PO
== END ==
LOC: M.CT 13:38
DX: J44.9 Chronic obstructive pulmonary disease, unspecified (principal); Z87.01 Personal history of pneumonia (recurrent); Z88.0 Allergy status to penicillin; Z88.1 Allergy status to other antibiotic agents; Z88.2 Allergy status to sulfonamides; Z88.6 Allergy status to analgesic agent; Z88.8 Allergy status to other drugs, medicaments and biological substances

== ENCOUNTER 2019-10-08 20:03 | Emergency (ER) | payer OTHER, MEDICAID ==
[~2019-10-08] VITALS: Ht 154.9 cm; Wt 104.3 kg
[2019-10-08 20:35] LABS: URINE BILIRUBIN NEGATIVE (Negative); URINE BLOOD NEGATIVE (Negative); URINE CLARITY CLEAR; URINE COLOR YELLOW; URINE GLUCOSE-RANDOM 1+ (Negative); URINE KETONES NEGATIVE (Negative); URINE LEUKOCYTES-REFLEX NEGATIVE (Negative); URINE NITRITE-REFLEX NEGATIVE (Negative); URINE PROTEIN NEGATIVE (Negative); URINE SPECIFIC GRAVITY 1.015 (1.005-1.030); URINE UROBILINOGEN 0.2 E.U./dl (0.2-1.0)
[2019-10-08 20:47] LABS: INFLUENZA A ANTIGEN Negative (Negative); INFLUENZA B ANTIGEN Negative (Negative)
[2019-10-08] MEDS ORDERED: CARAFATE 1 GM TA1 G1 PO (21:18)
[2019-10-08] MEDS ORDERED: DEXILANT30 MG PO (21:18)
[2019-10-08 22:03] VITALS: BP 136/81
== END 2019-10-08 22:04 | disposition home or self-care (01) ==
LOC: M.ERS 20:03
PROVIDERS: Physician Assistant
DX: R10.13 Epigastric pain (principal); I10 Essential (primary) hypertension; E11.9 Type 2 diabetes mellitus without complications; J45.909 Unspecified asthma, uncomplicated; K58.9 Irritable bowel syndrome, unspecified; E66.01 Morbid (severe) obesity due to excess calories; F17.210 Nicotine dependence, cigarettes, uncomplicated; Z88.1 Allergy status to other antibiotic agents; Z68.41 Body mass index [BMI] 40.0-44.9, adult; Z88.6 Allergy status to analgesic agent; Z88.0 Allergy status to penicillin

== ENCOUNTER 2019-10-27 20:49 | Emergency (ER) | payer OTHER, MEDICAID ==
[~2019-10-27] VITALS: Ht 154.9 cm; Wt 104.3 kg
[~2019-10-27 20:49] MED LIST changes: +CARAFATE 1 GM TA1 G1 PO; +DEXILANT30 MG PO
[2019-10-27 22:19] LABS: ABSOLUTE BASOPHILS 0.1 thou/uL (0.0-0.2); ABSOLUTE EOSINOPHILS 0.1 thou/uL (0.0-0.7); ABSOLUTE MONOCYTES 0.5 thou/uL (0.0-1.2); ABSOLUTE NEUTROPHILS 3.5 thou/uL (1.6-8.1); BASOPHILS 1.4 %; EOSINOPHILS 1.9 %; HEMATOCRIT 42.7 % (37.0-47.0); HEMOGLOBIN 14.5 gm/dL (12.0-15.0); LYMPHOCYTES 40.8 %; MCH 31.4 pg (26.0-34.0); MCHC 34.1 g/dL (28.0-37.0); MCV 92.1 fL (80.0-100.0); MONOCYTES 7.3 %; MPV 8.7 fl. (7.2-11.1); NUCLEATED RBCS 0 /100WBC; PLATELET COUNT* 348 thou/uL (150-400); POLYS 48.6 %; RBC 4.63 mil/uL (4.20-5.00); RDW-CV 14.9 % (10.5-14.5); WBC 7.3 thou/uL (4.0-11.0)
[2019-10-27 22:28] LABS: CALCIUM 8.5 mg/dL (8.5-10.1); CREATININE 0.6 mg/dL (0.6-1.3); POTASSIUM 3.5 mmol/L (3.5-5.1)
[2019-10-27 22:32] LABS: ALBUMIN 3.4 g/dL (3.4-5.0); TOTAL BILIRUBIN 0.3 mg/dL (<0.1-1.0)
[2019-10-27 23:04] LABS: URINE BILIRUBIN NEGATIVE (Negative); URINE BLOOD NEGATIVE (Negative); URINE CLARITY CLEAR; URINE COLOR YELLOW; URINE GLUCOSE-RANDOM NEGATIVE (Negative); URINE KETONES TRACE (Negative); URINE LEUKOCYTES-REFLEX NEGATIVE (Negative); URINE NITRITE-REFLEX NEGATIVE (Negative); URINE PROTEIN NEGATIVE (Negative); URINE SPECIFIC GRAVITY >= 1.030 (1.005-1.030)
[2019-10-27 23:12] LABS: AMP/METHAMP Negative (Negative); BARBITURATES Negative (Negative); BENZODIAZEPINES Negative (Negative); COCAINE Negative (Negative); METHADONE Negative (Negative); OPIATES Negative (Negative); PCP Negative (Negative); THC Negative (Negative)
[2019-10-28 00:09] VITALS: BP 139/86
== END 2019-10-28 00:09 | disposition home or self-care (01) ==
LOC: M.ERS 20:49
PROVIDERS: Physician Assistant
DX: R10.31 Right lower quadrant pain (principal); E11.9 Type 2 diabetes mellitus without complications; I10 Essential (primary) hypertension; J44.9 Chronic obstructive pulmonary disease, unspecified; E66.01 Morbid (severe) obesity due to excess calories; F17.210 Nicotine dependence, cigarettes, uncomplicated; Z88.1 Allergy status to other antibiotic agents; Z88.0 Allergy status to penicillin; Z88.6 Allergy status to analgesic agent; Z68.41 Body mass index [BMI] 40.0-44.9, adult; Z79.899 Other long term (current) drug therapy

== ENCOUNTER 2019-11-15 18:33 | Emergency (ER) | payer OTHER, MEDICAID ==
[~2019-11-15] VITALS: Ht 154.9 cm; Wt 102.1 kg
[2019-11-15 19:10] LABS: INFLUENZA A ANTIGEN Negative (Negative); INFLUENZA B ANTIGEN Negative (Negative)
[2019-11-15] MEDS ORDERED: PERIDEX15 ML SWISH&SPIT (19:17)
[2019-11-15] MEDS ORDERED: CLINDAMYCIN HC150 MG PO (19:17)
[2019-11-15 19:46] VITALS: BP 148/74
--- NOTE | 2019-11-16 14:54 | EKG ---
[place] [address] ELECTROCARDIOGRAM REPORT Name: BRITTON CAT Room: [facility]#: [id number] Admission: 11/15/19 Attend Phys: Discharge: 11/15/19 Date of : [birth year] Date of Service: 11/15/19 1836 Report #: [id number] THIS REPORT FOR: //name// [facility] ED Test Date: 2019-11-15 Test Time: 18:36:45 Pat Name: BRITTON CAT Department: Room: Gender: Drop Board Worker: : 1985 Requested By: Gage Huerta Order Number: [id number] MD: Gianfranco Aparicio Measurements Intervals [place] Rate: 87 P: 27 [place]: 141 QRS: 47 QRSD: 89 T: 32 QT: 358 QTc: 431 Interpretive Statements Sinus rhythm Compared to ECG 03/21/2019 22:00:22 Sinus tachycardia no longer present Ventricular premature complex(es) no longer present Electronically Signed On 11-16-2019 14:53:13 CDT by Gianfranco Aparicio [email or web address] <ELECTRONICALLY SIGNED> By: Gianfranco Aparicio MD, [facility] 11/16/19 1453 1836 1836 Gianfranco Aparicio MD, [facility] /EPI
== END 2019-11-15 19:48 | disposition home or self-care (01) ==
LOC: M.ERS 18:33
PROVIDERS: Family Medicine
DX: J18.9 Pneumonia, unspecified organism (principal); K04.7 Periapical abscess without sinus; I10 Essential (primary) hypertension; E11.9 Type 2 diabetes mellitus without complications; E66.01 Morbid (severe) obesity due to excess calories; J45.909 Unspecified asthma, uncomplicated; J44.9 Chronic obstructive pulmonary disease, unspecified; K58.9 Irritable bowel syndrome, unspecified; F20.9 Schizophrenia, unspecified; F17.210 Nicotine dependence, cigarettes, uncomplicated; Z68.41 Body mass index [BMI] 40.0-44.9, adult; Z88.0 Allergy status to penicillin; Z88.1 Allergy status to other antibiotic agents; Z88.6 Allergy status to analgesic agent; Z88.8 Allergy status to other drugs, medicaments and biological substances

== ENCOUNTER 2019-11-26 00:38 | Emergency (ER) | payer OTHER, MEDICAID ==
[~2019-11-26] VITALS: Ht 154.9 cm; Wt 99.8 kg
[~2019-11-26 00:38] MED LIST changes: +CLINDAMYCIN HC150 MG PO
[2019-11-26] MEDS ORDERED: HYDROCODON-ACE1 EAC8 PO (01:41)
[2019-11-26 01:48] VITALS: BP 146/58
== END 2019-11-26 01:48 | disposition home or self-care (01) ==
LOC: M.ERS 00:38
DX: S86.812A Strain of other muscle(s) and tendon(s) at lower leg level, left leg, initial encounter (principal); I10 Essential (primary) hypertension; E11.9 Type 2 diabetes mellitus without complications; J44.9 Chronic obstructive pulmonary disease, unspecified; E66.01 Morbid (severe) obesity due to excess calories; F17.210 Nicotine dependence, cigarettes, uncomplicated; Z68.41 Body mass index [BMI] 40.0-44.9, adult; Z88.0 Allergy status to penicillin; Z88.6 Allergy status to analgesic agent; Z88.1 Allergy status to other antibiotic agents; X58.XXXA Exposure to other specified factors, initial encounter; Y93.89 Activity, other specified; Y92.89 Other specified places as the place of occurrence of the external cause; Y99.8 Other external cause status

== ENCOUNTER → 2019-12-04 | Outpatient (CLI) | payer OTHER, MEDICAID ==
[~2019-12-04] MED LIST changes: +HYDROCODON-ACE1 EAC8 PO
== END ==
LOC: M.MRI 13:56
DX: M25.562 Pain in left knee (principal)

== ENCOUNTER 2020-01-04 23:27 | Emergency (ER) | payer OTHER, MEDICAID ==
[~2020-01-04] VITALS: Ht 154.9 cm; Wt 101.6 kg
[2020-01-04] MEDS ORDERED: KEFLEX250 MG PO (23:51)
[2020-01-04] MEDS ORDERED: NORCO 5-325 TA1 EAC1 PO (23:51)
[2020-01-04 23:54] VITALS: BP 165/77
== END 2020-01-05 00:04 | disposition home or self-care (01) ==
LOC: M.ERS 23:27
DX: H66.91 Otitis media, unspecified, right ear (principal); I10 Essential (primary) hypertension; E11.9 Type 2 diabetes mellitus without complications; E66.01 Morbid (severe) obesity due to excess calories; J44.9 Chronic obstructive pulmonary disease, unspecified; J45.909 Unspecified asthma, uncomplicated; K58.9 Irritable bowel syndrome, unspecified; F20.9 Schizophrenia, unspecified; F41.9 Anxiety disorder, unspecified; F17.210 Nicotine dependence, cigarettes, uncomplicated; Z68.41 Body mass index [BMI] 40.0-44.9, adult; Z88.0 Allergy status to penicillin; Z88.1 Allergy status to other antibiotic agents; Z88.8 Allergy status to other drugs, medicaments and biological substances

== ENCOUNTER 2020-01-19 09:07 | Emergency (ER) | payer OTHER, MEDICAID ==
[~2020-01-19] VITALS: Ht 154.9 cm; Wt 102.1 kg
[~2020-01-19 09:07] MED LIST changes: +KEFLEX250 MG PO; +RISPERDAL2 MG PO; -RISPERIDONE 1 MG1 MG
[2020-01-19] MEDS ORDERED: DICYCLOMINE HCL20 MG PO (09:20)
[2020-01-19] MEDS ORDERED: FAMOTIDINE 20 M20 MG PO (09:21)
[2020-01-19] MEDS ORDERED: TYLENOL WITH CO1 TA1 PO (10:23)
[2020-01-19] MEDS ORDERED: DOXYCYCLINE 10100 MG PO (10:23)
[2020-01-19 10:50] VITALS: BP 150/74
== END 2020-01-19 10:50 | disposition home or self-care (01) ==
LOC: M.ERS 09:07
DX: J32.9 Chronic sinusitis, unspecified (principal); F17.210 Nicotine dependence, cigarettes, uncomplicated; I10 Essential (primary) hypertension; J45.909 Unspecified asthma, uncomplicated; F41.9 Anxiety disorder, unspecified; J44.9 Chronic obstructive pulmonary disease, unspecified; F32.9 Major depressive disorder, single episode, unspecified; F20.9 Schizophrenia, unspecified; F43.10 Post-traumatic stress disorder, unspecified; E11.9 Type 2 diabetes mellitus without complications; E66.01 Morbid (severe) obesity due to excess calories; Z68.42 Body mass index [BMI] 45.0-49.9, adult; Z88.0 Allergy status to penicillin; Z88.1 Allergy status to other antibiotic agents; Z88.6 Allergy status to analgesic agent; Z88.8 Allergy status to other drugs, medicaments and biological substances; Z79.899 Other long term (current) drug therapy

== ENCOUNTER 2020-02-03 01:18 | Emergency (ER) | payer OTHER, MEDICAID ==
[~2020-02-03] VITALS: Ht 154.9 cm; Wt 99.8 kg
[~2020-02-03 01:18] MED LIST changes: +DICYCLOMINE HCL20 MG PO; +FAMOTIDINE 20 M20 MG PO; +TYLENOL WITH CO1 TA1 PO
[2020-02-03] MEDS ORDERED: ALBUTEROL2.5 MG/31 INH (01:31)
[2020-02-03] MEDS ORDERED: MEDROLDOSEPACK PO (02:36)
[2020-02-03 02:56] VITALS: BP 120/82
--- NOTE | 2020-02-03 19:18 | EKG ---
[place] [address] ELECTROCARDIOGRAM REPORT Name: BRITTON CAT Room: [facility]#: [id number] Admission: 02/03/20 Attend Phys: Discharge: 02/03/20 Date of : [birth year] Date of Service: 02/03/20 0151 Report #: [id number] THIS REPORT FOR: //name// [facility] ED Test Date: 2020-02-03 Test Time: 01:51:00 Pat Name: BRITTON CAT Department: Room: Gender: Change Room Attendant: [facility] : 1985 Requested By: Paige Coe Order Number: [id number] MD: Gianfranco Aparicio Measurements Intervals [place] Rate: 93 P: 5 MD: 148 QRS: 40 QRSD: 88 T: 27 QT: 344 QTc: 428 Interpretive Statements Sinus rhythm Possible left atrial enlargement Compared to ECG 11/15/2019 18:36:45 No significant changes Electronically Signed On 02-03-2020 17:42:26 CDT by Gianfranco Aparicio [email or web address] <ELECTRONICALLY SIGNED> By: Gianfranco Aparicio MD, [facility] 02/03/20 1742 015 015 Gianfranco Aparicio MD, FAC /EPI
== END 2020-02-03 03:00 | disposition home or self-care (01) ==
LOC: M.ERS 01:18
DX: J06.9 Acute upper respiratory infection, unspecified (principal); J44.9 Chronic obstructive pulmonary disease, unspecified; E11.9 Type 2 diabetes mellitus without complications; I10 Essential (primary) hypertension; K58.9 Irritable bowel syndrome, unspecified; F17.210 Nicotine dependence, cigarettes, uncomplicated; E66.01 Morbid (severe) obesity due to excess calories; Z68.41 Body mass index [BMI] 40.0-44.9, adult; Z88.1 Allergy status to other antibiotic agents; Z88.0 Allergy status to penicillin; Z88.6 Allergy status to analgesic agent

== ENCOUNTER 2020-02-17 17:14 | Emergency (ER) | payer OTHER, MEDICAID ==
[~2020-02-17] VITALS: Ht 154.9 cm; Wt 99.8 kg
[~2020-02-17 17:14] MED LIST changes: +ALBUTEROL2.5 MG/31 INH; +MEDROLDOSEPACK PO
[2020-02-17] MEDS ORDERED: VIBRAMYCIN 100100 M2 PO (18:01)
[2020-02-17 18:11] VITALS: BP 139/75
== END 2020-02-17 18:11 | disposition home or self-care (01) ==
LOC: M.ERS 17:14
DX: H66.91 Otitis media, unspecified, right ear (principal); R09.81 Nasal congestion; J45.909 Unspecified asthma, uncomplicated; I10 Essential (primary) hypertension; E11.9 Type 2 diabetes mellitus without complications; J44.9 Chronic obstructive pulmonary disease, unspecified; E66.01 Morbid (severe) obesity due to excess calories; F17.210 Nicotine dependence, cigarettes, uncomplicated; Z68.41 Body mass index [BMI] 40.0-44.9, adult; Z88.1 Allergy status to other antibiotic agents; Z88.2 Allergy status to sulfonamides; Z88.0 Allergy status to penicillin; Z88.6 Allergy status to analgesic agent; Z88.8 Allergy status to other drugs, medicaments and biological substances

== ENCOUNTER 2020-03-03 19:22 | Emergency (ER) | payer OTHER, MEDICAID ==
[~2020-03-03] VITALS: Ht 154.9 cm; Wt 99.8 kg
[~2020-03-03 19:22] MED LIST changes: +VIBRAMYCIN 100100 M2 PO
[2020-03-03 19:51] LABS: URINE BILIRUBIN NEGATIVE (Negative); URINE BLOOD NEGATIVE (Negative); URINE CLARITY CLEAR; URINE COLOR YELLOW; URINE GLUCOSE-RANDOM NEGATIVE (Negative); URINE KETONES NEGATIVE (Negative); URINE LEUKOCYTES-REFLEX NEGATIVE (Negative); URINE NITRITE-REFLEX NEGATIVE (Negative); URINE PROTEIN NEGATIVE (Negative); URINE UROBILINOGEN 0.2 E.U./dl (0.2-1.0)
[2020-03-03 20:05] LABS: ABSOLUTE BASOPHILS 0.1 thou/uL (0.0-0.2); ABSOLUTE EOSINOPHILS 0.2 thou/uL (0.0-0.7); ABSOLUTE LYMPHOCYTES 3.6 thou/uL (0.8-5.3); ABSOLUTE MONOCYTES 0.6 thou/uL (0.0-1.2); ABSOLUTE NEUTROPHILS 5.2 thou/uL (1.6-8.1); BASOPHILS 1.2 %; EOSINOPHILS 1.9 %; HEMATOCRIT 45.9 % (37.0-47.0); HEMOGLOBIN 15.6 gm/dL (12.0-15.0); LYMPHOCYTES 37.2 %; MCH 31.5 pg (26.0-34.0); MCV 92.7 fL (80.0-100.0); MONOCYTES 6.1 %; MPV 8.7 fl. (7.2-11.1); NUCLEATED RBCS 0 /100WBC; PLATELET COUNT* 371 thou/uL (150-400); POLYS 53.6 %; RBC 4.95 mil/uL (4.20-5.00); RDW-CV 15.3 % (10.5-14.5); WBC 9.6 thou/uL (4.0-11.0)
[2020-03-03 20:12] LABS: CALCIUM 8.5 mg/dL (8.5-10.1); CREATININE 0.9 mg/dL (0.6-1.3); POTASSIUM 3.6 mmol/L (3.5-5.1)
[2020-03-03 20:17] LABS: ALBUMIN 3.7 g/dL (3.4-5.0); TOTAL BILIRUBIN 0.3 mg/dL (<0.1-1.0); TOTAL PROTEIN 7.5 g/dL (6.4-8.2)
[2020-03-03] MEDS ORDERED: PHENERGAN 25 MG25 M1 PO (21:32)
[2020-03-03] MEDS ORDERED: TYLENOL WITH CO1 TA1 PO (21:32)
[2020-03-03 21:58] VITALS: BP 132/67
--- NOTE | 2020-03-04 13:22 | EKG ---
[place] [address] ELECTROCARDIOGRAM REPORT Name: CATBRITTON L Room: [facility]#: [id number] Admission: 03/03/20 Attend Phys: Discharge: 03/03/20 Date of : [birth year] Date of Service: 03/03/202011 Report #: [id number] THIS REPORT FOR: //name// [facility] ED Test Date: 2020-03-03 Test Time: 20:12:12 Pat Name: BRITTON CAT Department: Room: Gender: Seismic Computer: : 1985 Requested By: Ophelia Garcia Order Number: [id number] MD: Gianfranco Aparicio Measurements Intervals [place] Rate: 87 P: 25 [place]: 138 QRS: 40 QRSD: 96 T: 15 QT: 371 QTc: 447 Interpretive Statements Sinus rhythm Compared to ECG 02/03/2020 01:51:00 No significant changes Electronically Signed On 03-04-2020 13:22:29 CDT by Gianfranco Aparicio [email or web address] <ELECTRONICALLY SIGNED> By: Gianfranco Aparicio MD, [facility] 03/04/20 1322 11 11 Gianfranco Aparicio MD, FACC /EPI
== END 2020-03-03 21:58 | disposition home or self-care (01) ==
LOC: M.ERS 19:22
PROVIDERS: Nurse Practitioner Family
DX: K82.0 Obstruction of gallbladder (principal); R94.5 Abnormal results of liver function studies; J44.9 Chronic obstructive pulmonary disease, unspecified; I10 Essential (primary) hypertension; E11.9 Type 2 diabetes mellitus without complications; E66.01 Morbid (severe) obesity due to excess calories; F17.210 Nicotine dependence, cigarettes, uncomplicated; Z68.41 Body mass index [BMI] 40.0-44.9, adult; Z88.1 Allergy status to other antibiotic agents; Z88.0 Allergy status to penicillin; Z88.6 Allergy status to analgesic agent; Z88.2 Allergy status to sulfonamides

== ENCOUNTER 2020-03-22 19:57 | Emergency (ER) | payer OTHER, MEDICAID ==
[~2020-03-22] VITALS: Ht 154.9 cm; Wt 102.1 kg
[2020-03-22] MEDS ORDERED: MUCINEX600 MG PO (20:40)
[2020-03-22 21:47] VITALS: BP 147/83
== END 2020-03-22 21:47 | disposition home or self-care (01) ==
LOC: M.ERS 19:57
DX: M65.342 Trigger finger, left ring finger (principal); R09.81 Nasal congestion; I10 Essential (primary) hypertension; E11.9 Type 2 diabetes mellitus without complications; E66.01 Morbid (severe) obesity due to excess calories; J44.9 Chronic obstructive pulmonary disease, unspecified; J45.909 Unspecified asthma, uncomplicated; K58.9 Irritable bowel syndrome, unspecified; F20.9 Schizophrenia, unspecified; F41.9 Anxiety disorder, unspecified; F17.210 Nicotine dependence, cigarettes, uncomplicated; Z68.41 Body mass index [BMI] 40.0-44.9, adult; Z88.0 Allergy status to penicillin; Z88.1 Allergy status to other antibiotic agents; Z88.2 Allergy status to sulfonamides; Z88.8 Allergy status to other drugs, medicaments and biological substances

== ENCOUNTER 2020-03-30 18:05 | Emergency (ER) | payer OTHER, MEDICAID ==
[~2020-03-30] VITALS: Ht 154.9 cm; Wt 104.3 kg
[~2020-03-30 18:05] MED LIST changes: +MUCINEX600 MG PO
[2020-03-30] MEDS ORDERED: KEFLEX500 M1 PO (18:37)
[2020-03-30 18:43] VITALS: BP 131/90
== END 2020-03-30 18:44 | disposition home or self-care (01) ==
LOC: M.ERS 18:05
DX: L73.9 Follicular disorder, unspecified (principal); I10 Essential (primary) hypertension; E11.9 Type 2 diabetes mellitus without complications; E66.01 Morbid (severe) obesity due to excess calories; K58.9 Irritable bowel syndrome, unspecified; J44.9 Chronic obstructive pulmonary disease, unspecified; J45.909 Unspecified asthma, uncomplicated; F41.9 Anxiety disorder, unspecified; F32.9 Major depressive disorder, single episode, unspecified; F20.9 Schizophrenia, unspecified; F17.210 Nicotine dependence, cigarettes, uncomplicated; Z68.41 Body mass index [BMI] 40.0-44.9, adult; Z88.0 Allergy status to penicillin; Z88.1 Allergy status to other antibiotic agents; Z88.2 Allergy status to sulfonamides; Z88.8 Allergy status to other drugs, medicaments and biological substances

== ENCOUNTER 2020-03-31 12:37 | Emergency (ER) | payer OTHER, MEDICAID ==
[~2020-03-31] VITALS: Ht 154.9 cm; Wt 104.3 kg
[2020-03-31 12:53] VITALS: BP 142/86
== END 2020-03-31 13:21 | disposition home or self-care (01) ==
LOC: M.ERS 12:37
DX: R60.9 Edema, unspecified (principal); T78.40XA Allergy, unspecified, initial encounter; J44.9 Chronic obstructive pulmonary disease, unspecified; I10 Essential (primary) hypertension; E11.9 Type 2 diabetes mellitus without complications; K58.9 Irritable bowel syndrome, unspecified; E66.01 Morbid (severe) obesity due to excess calories; F17.210 Nicotine dependence, cigarettes, uncomplicated; Z88.1 Allergy status to other antibiotic agents; Z88.2 Allergy status to sulfonamides; Z88.6 Allergy status to analgesic agent; Z88.0 Allergy status to penicillin; Z68.41 Body mass index [BMI] 40.0-44.9, adult; X58.XXXA Exposure to other specified factors, initial encounter

== ENCOUNTER → 2020-04-02 | Outpatient (CLI) | payer OTHER, MEDICAID | LOC: M.ULTRA 03-31 14:00 | PROVIDERS: ATTEND Surgery | DX: K76.0 Fatty (change of) liver, not elsewhere classified (principal); R16.0 Hepatomegaly, not elsewhere classified ==

== ENCOUNTER → 2020-04-14 | Outpatient (CLI) | payer OTHER, MEDICAID | LOC: M.NUC 12:45 | PROVIDERS: ATTEND Surgery | DX: R10.11 Right upper quadrant pain (principal) ==

== ENCOUNTER 2020-04-15 19:46 | Emergency (ER) | payer OTHER, MEDICAID ==
[~2020-04-15] VITALS: Ht 160 cm; Wt 117.9 kg
[2020-04-15 20:00] VITALS: BP 121/77
[2020-04-15] MEDS ORDERED: KEFLEX500 M1 PO (20:16)
== END 2020-04-15 20:30 | disposition home or self-care (01) ==
LOC: M.ERS 19:46
DX: L73.9 Follicular disorder, unspecified (principal); J44.9 Chronic obstructive pulmonary disease, unspecified; I10 Essential (primary) hypertension; E11.9 Type 2 diabetes mellitus without complications; K58.9 Irritable bowel syndrome, unspecified; F20.9 Schizophrenia, unspecified; E66.01 Morbid (severe) obesity due to excess calories; F17.210 Nicotine dependence, cigarettes, uncomplicated; Z68.42 Body mass index [BMI] 45.0-49.9, adult; Z88.1 Allergy status to other antibiotic agents; Z88.6 Allergy status to analgesic agent; Z88.2 Allergy status to sulfonamides; Z88.0 Allergy status to penicillin

== ENCOUNTER 2020-05-02 14:20 | Emergency (ER) | payer OTHER, MEDICAID ==
[~2020-05-02] VITALS: Ht 154.9 cm; Wt 102.1 kg
[2020-05-02] MEDS ORDERED: IBUPROFEN 800800 M1 PO (15:47)
[2020-05-02 15:55] VITALS: BP 128/74
== END 2020-05-02 15:58 | disposition home or self-care (01) ==
LOC: M.ERS 14:20
DX: M76.71 Peroneal tendinitis, right leg (principal); J44.9 Chronic obstructive pulmonary disease, unspecified; I10 Essential (primary) hypertension; E11.9 Type 2 diabetes mellitus without complications; K58.9 Irritable bowel syndrome, unspecified; E66.01 Morbid (severe) obesity due to excess calories; F17.210 Nicotine dependence, cigarettes, uncomplicated; Z88.1 Allergy status to other antibiotic agents; Z88.2 Allergy status to sulfonamides; Z88.0 Allergy status to penicillin; Z88.6 Allergy status to analgesic agent

== ENCOUNTER 2020-05-31 01:02 | Emergency (ER) | payer OTHER, MEDICAID ==
[~2020-05-31] VITALS: Ht 154.9 cm; Wt 104.3 kg
[2020-05-31 02:45] VITALS: BP 156/85
[2020-05-31] MEDS ORDERED: IPRAT-ALBUT 0.5-3 ML INH (03:07)
[2020-05-31] MEDS ORDERED: MEDROLDOSEPACK PO (03:07)
== END 2020-05-31 03:12 | disposition home or self-care (01) ==
LOC: M.ERS 01:02
DX: J44.1 Chronic obstructive pulmonary disease with (acute) exacerbation (principal); Z20.828 Contact with and (suspected) exposure to other viral communicable diseases; J45.909 Unspecified asthma, uncomplicated; I10 Essential (primary) hypertension; E11.9 Type 2 diabetes mellitus without complications; K58.9 Irritable bowel syndrome, unspecified; E66.01 Morbid (severe) obesity due to excess calories; F17.210 Nicotine dependence, cigarettes, uncomplicated; Z68.41 Body mass index [BMI] 40.0-44.9, adult; Z88.1 Allergy status to other antibiotic agents; Z88.2 Allergy status to sulfonamides; Z88.6 Allergy status to analgesic agent

== ENCOUNTER 2020-08-22 19:04 | Emergency (ER) | payer OTHER, MEDICAID ==
[~2020-08-22] VITALS: Ht 154.9 cm; Wt 96.6 kg
[~2020-08-22 19:04] MED LIST changes: +IPRAT-ALBUT 0.5-3 ML INH
[2020-08-22] MEDS ORDERED: OZEMPIC0.25 MG/0. SUBQ (19:18)
[2020-08-22] MEDS ORDERED: CLEOCIN HCL150 MG PO (21:04)
[2020-08-22 21:16] VITALS: BP 140/74
== END 2020-08-22 21:17 | disposition home or self-care (01) ==
LOC: M.ERS 19:04
DX: J32.9 Chronic sinusitis, unspecified (principal); I10 Essential (primary) hypertension; J44.9 Chronic obstructive pulmonary disease, unspecified; E11.9 Type 2 diabetes mellitus without complications; F17.210 Nicotine dependence, cigarettes, uncomplicated; Z79.899 Other long term (current) drug therapy; Z88.1 Allergy status to other antibiotic agents; Z88.2 Allergy status to sulfonamides; Z88.8 Allergy status to other drugs, medicaments and biological substances

== ENCOUNTER 2020-08-30 21:40 | Emergency (ER) | payer OTHER, MEDICAID ==
[~2020-08-30] VITALS: Ht 154.9 cm; Wt 97.5 kg
[~2020-08-30 21:40] MED LIST changes: +OZEMPIC0.25 MG/0. SUBQ
[2020-08-30] MEDS ORDERED: DYMISTA NASAL S23 GM NASAL (22:34)
[2020-08-30] MEDS ORDERED: levaquin PO (22:34)
[2020-08-30 22:43] VITALS: BP 138/80
== END 2020-08-30 22:44 | disposition home or self-care (01) ==
LOC: M.ERS 21:40
DX: R09.89 Other specified symptoms and signs involving the circulatory and respiratory systems (principal); I10 Essential (primary) hypertension; J44.9 Chronic obstructive pulmonary disease, unspecified; E11.9 Type 2 diabetes mellitus without complications; F17.210 Nicotine dependence, cigarettes, uncomplicated; Z79.899 Other long term (current) drug therapy; Z79.1 Long term (current) use of non-steroidal anti-inflammatories (NSAID); Z88.1 Allergy status to other antibiotic agents; Z88.2 Allergy status to sulfonamides; Z88.8 Allergy status to other drugs, medicaments and biological substances

== ENCOUNTER 2020-09-09 21:35 | Emergency (ER) | payer OTHER, MEDICAID ==
[~2020-09-09] VITALS: Ht 154.9 cm; Wt 97.5 kg
[~2020-09-09 21:35] MED LIST changes: +DYMISTA NASAL S23 GM NASAL; +levaquin PO
[2020-09-09] MEDS ORDERED: OZEMPIC1 MG/0.75 SUBQ (21:54)
[2020-09-09] MEDS ORDERED: DOXYCYCLINE 10100 MG PO (22:20)
[2020-09-09] MEDS ORDERED: TYLENOL325 M1 PO (22:20)
[2020-09-09] MEDS ORDERED: VANACOF DM LIQ240 ML PO (22:20)
[2020-09-09 22:28] VITALS: BP 151/86
== END 2020-09-09 22:29 | disposition home or self-care (01) ==
LOC: M.ERS 21:35
DX: J40 Bronchitis, not specified as acute or chronic (principal); Z20.828 Contact with and (suspected) exposure to other viral communicable diseases; I10 Essential (primary) hypertension; F17.210 Nicotine dependence, cigarettes, uncomplicated; E11.9 Type 2 diabetes mellitus without complications; E66.01 Morbid (severe) obesity due to excess calories; Z79.899 Other long term (current) drug therapy; Z88.1 Allergy status to other antibiotic agents; Z88.6 Allergy status to analgesic agent; Z88.8 Allergy status to other drugs, medicaments and biological substances

== ENCOUNTER 2020-09-29 16:44 | Emergency (ER) | payer OTHER, MEDICAID ==
[~2020-09-29] VITALS: Ht 154.9 cm; Wt 97.5 kg
[~2020-09-29 16:44] MED LIST changes: +OZEMPIC1 MG/0.75 SUBQ; +TYLENOL325 M1 PO; +VANACOF DM LIQ240 ML PO
[2020-09-29 16:50] VITALS: BP 193/75
[2020-09-29] MEDS ORDERED: NABUMETONE 750750 M1 PO (17:10)
[2020-09-29] MEDS ORDERED: KEFLEX500 M1 PO (17:10)
[2020-09-29] MEDS ORDERED: TRAMADOL 50 MG50 MG PO (17:13)
== END 2020-09-29 17:17 | disposition home or self-care (01) ==
LOC: M.ERS 16:44
DX: J06.9 Acute upper respiratory infection, unspecified (principal); J45.909 Unspecified asthma, uncomplicated; I10 Essential (primary) hypertension; E11.9 Type 2 diabetes mellitus without complications; J44.9 Chronic obstructive pulmonary disease, unspecified; E66.01 Morbid (severe) obesity due to excess calories; F17.210 Nicotine dependence, cigarettes, uncomplicated; Z68.41 Body mass index [BMI] 40.0-44.9, adult; Z88.1 Allergy status to other antibiotic agents; Z88.6 Allergy status to analgesic agent; Z88.2 Allergy status to sulfonamides

== ENCOUNTER 2020-11-06 17:38 | Emergency (ER) | payer OTHER, MEDICAID ==
[~2020-11-06] VITALS: Ht 154.9 cm; Wt 95.3 kg
[2020-11-06 18:08] VITALS: BP 145/76
== END 2020-11-06 18:09 | disposition home or self-care (01) ==
LOC: M.ERS 17:38
DX: J06.9 Acute upper respiratory infection, unspecified (principal); I10 Essential (primary) hypertension; E11.9 Type 2 diabetes mellitus without complications; J44.9 Chronic obstructive pulmonary disease, unspecified; E66.01 Morbid (severe) obesity due to excess calories; F17.210 Nicotine dependence, cigarettes, uncomplicated; Z68.39 Body mass index [BMI] 39.0-39.9, adult; Z88.1 Allergy status to other antibiotic agents; Z88.2 Allergy status to sulfonamides; Z88.6 Allergy status to analgesic agent

== ENCOUNTER 2020-11-20 12:17 | Emergency (ER) | payer OTHER, MEDICAID ==
[~2020-11-20] VITALS: Ht 154.9 cm; Wt 99.8 kg
[2020-11-20 12:40] LABS: URINE BILIRUBIN NEGATIVE (Negative); URINE BLOOD NEGATIVE (Negative); URINE CLARITY CLEAR; URINE COLOR YELLOW; URINE GLUCOSE-RANDOM NEGATIVE (Negative); URINE KETONES NEGATIVE (Negative); URINE LEUKOCYTES-REFLEX NEGATIVE (Negative); URINE NITRITE-REFLEX NEGATIVE (Negative); URINE PROTEIN NEGATIVE (Negative); URINE UROBILINOGEN 0.2 E.U./dl (0.2-1.0)
[2020-11-20] MEDS ORDERED: NAPROSYN500 MG PO ×2 (13:00→13:06)
[2020-11-20] MEDS ORDERED: PHENAZOPYRIDIN200 M2 PO ×2 (13:00→13:06)
[2020-11-20 13:13] VITALS: BP 132/68
== END 2020-11-20 13:14 | disposition home or self-care (01) ==
LOC: M.ERS 12:17
PROVIDERS: Physician Assistant
DX: M54.5 Low back pain (principal); R10.32 Left lower quadrant pain; J45.909 Unspecified asthma, uncomplicated; I10 Essential (primary) hypertension; E11.9 Type 2 diabetes mellitus without complications; J44.9 Chronic obstructive pulmonary disease, unspecified; E66.01 Morbid (severe) obesity due to excess calories; K58.9 Irritable bowel syndrome, unspecified; F17.210 Nicotine dependence, cigarettes, uncomplicated; Z68.41 Body mass index [BMI] 40.0-44.9, adult; Z88.1 Allergy status to other antibiotic agents; Z88.2 Allergy status to sulfonamides; Z88.6 Allergy status to analgesic agent

== ENCOUNTER → 2020-12-25 | Emergency (ER) | payer OTHER, MEDICAID ==
[~2020-12-25] VITALS: Ht 154.9 cm; Wt 99.8 kg
[~2020-12-25] MED LIST changes: +PHENAZOPYRIDIN200 M2 PO
[2020-12-25 15:51] VITALS: BP 142/72
== END ==
LOC: M.ERS 15:00
DX: H92.02 Otalgia, left ear (principal); J45.909 Unspecified asthma, uncomplicated; I10 Essential (primary) hypertension; E11.9 Type 2 diabetes mellitus without complications; J44.9 Chronic obstructive pulmonary disease, unspecified; K58.9 Irritable bowel syndrome, unspecified; E66.01 Morbid (severe) obesity due to excess calories; Z68.41 Body mass index [BMI] 40.0-44.9, adult; Z88.1 Allergy status to other antibiotic agents; Z88.6 Allergy status to analgesic agent; Z88.2 Allergy status to sulfonamides

== ENCOUNTER 2021-01-24 17:58 | Emergency (ER) | payer OTHER, MEDICAID ==
[~2021-01-24] VITALS: Ht 154.9 cm; Wt 99.8 kg
[2021-01-24 19:47] LABS: ABSOLUTE EOSINOPHILS 0.1 thou/uL (0.0-0.7); ABSOLUTE LYMPHOCYTES 3.8 thou/uL (0.8-5.3); ABSOLUTE MONOCYTES 0.8 thou/uL (0.0-1.2); ABSOLUTE NEUTROPHILS 5.2 thou/uL (1.6-8.1); BASOPHILS 0.4 %; EOSINOPHILS 1.2 %; HEMATOCRIT 39.3 % (37.0-47.0); HEMOGLOBIN 13.4 gm/dL (12.0-15.0); LYMPHOCYTES 38.2 %; MCH 31.3 pg (26.0-34.0); MCHC 34.1 g/dL (28.0-37.0); MCV 91.7 fL (80.0-100.0); MPV 7.7 fl. (7.2-11.1); NUCLEATED RBCS 0 /100WBC; PLATELET COUNT* 374 thou/uL (150-400); POLYS 52.2 %; RBC 4.29 mil/uL (4.20-5.00); RDW-CV 15.4 % (10.5-14.5)
[2021-01-24 19:57] LABS: ANION GAP 11 mmol/L (7-16); BUN 6 mg/dL (7-18); CALCIUM 8.8 mg/dL (8.5-10.1); CHLORIDE 108 mmol/L (98-107); CO2 26 mmol/L (21-32); CREATININE 0.7 mg/dL (0.6-1.3); GLUCOSE 116 mg/dL (70-99); POTASSIUM 3.9 mmol/L (3.5-5.1); SODIUM 145 mmol/L (136-145)
[2021-01-24 20:06] LABS: URINE BILIRUBIN NEGATIVE (Negative); URINE BLOOD NEGATIVE (Negative); URINE CLARITY CLEAR; URINE COLOR YELLOW; URINE GLUCOSE-RANDOM 2+ (Negative); URINE KETONES TRACE (Negative); URINE LEUKOCYTES-REFLEX NEGATIVE (Negative); URINE NITRITE-REFLEX NEGATIVE (Negative); URINE PROTEIN NEGATIVE (Negative); URINE SPECIFIC GRAVITY >= 1.030 (1.005-1.030); URINE UROBILINOGEN 0.2 E.U./dl (0.2-1.0)
[2021-01-24 20:10] LABS: ALBUMIN 3.4 g/dL (3.4-5.0); ALKALINE PHOSPHATASE 87 U/L (46-116); MAGNESIUM 1.9 mg/dL (1.8-2.4); NT-PRO BRAIN NAT PEPTIDE 18 pg/mL (<300); SGOT 29 U/L (15-37); SGPT 50 U/L (30-65); TOTAL BILIRUBIN < 0.1 mg/dL (<0.1-1.0); TOTAL PROTEIN 7.2 g/dL (6.4-8.2)
[2021-01-24 20:13] LABS: AMP/METHAMP Negative (Negative); BARBITURATES Negative (Negative); BENZODIAZEPINES POSITIVE (Negative); COCAINE Negative (Negative); METHADONE Negative (Negative); OPIATES Negative (Negative); PCP Negative (Negative); THC Negative (Negative)
[2021-01-24] MEDS ORDERED: FLEXERIL PO (22:27)
[2021-01-24 22:39] VITALS: BP 124/72
--- NOTE | 2021-01-25 09:03 | EKG ---
[place] [address] ELECTROCARDIOGRAM REPORT Name: EMORYBRITTON WRIGHT Room: [facility]#: [id number] Admission: 01/24/21 Attend Phys: Discharge: 01/24/21 Date of : [birth year] Date of Service: 01/24/211801 Report #: [id number] THIS REPORT FOR: //name// [facility] ED Test Date: 2021-01-24 Test Time: 18:02:50 Pat Name: BRITTON CAT Department: Room: Gender: Nursing Clinical Director: [facility] : 1985 Requested By: Ophelia Garcia Order Number: [id number] MD: Gianfranco Aparicio Measurements Intervals [place] Rate: 93 P: 31 [place]: 141 QRS: 38 QRSD: 88 T: 31 QT: 349 QTc: 435 Interpretive Statements Sinus rhythm Compared to ECG 03/03/2020 20:12:12 No significant changes Electronically Signed On 01-25-2021 9:03:40 CDT by Gianfranco Aparicio [email or web address] <ELECTRONICALLY SIGNED> By: Gianfranco Aparicio MD, [facility] 01/25/21902 01 01 Gianfranco Aparicio MD, [facility] /EPI
== END 2021-01-24 22:39 | disposition home or self-care (01) ==
LOC: M.ERS 17:58
PROVIDERS: Nurse Practitioner Family
DX: R07.89 Other chest pain (principal); J45.909 Unspecified asthma, uncomplicated; I10 Essential (primary) hypertension; E11.9 Type 2 diabetes mellitus without complications; K58.9 Irritable bowel syndrome, unspecified; J44.9 Chronic obstructive pulmonary disease, unspecified; Z79.899 Other long term (current) drug therapy; Z88.1 Allergy status to other antibiotic agents; Z88.2 Allergy status to sulfonamides; Z88.6 Allergy status to analgesic agent

== ENCOUNTER 2021-01-29 14:48 | Emergency (ER) | payer OTHER, MEDICAID ==
[~2021-01-29] VITALS: Ht 154.9 cm; Wt 99.8 kg
[~2021-01-29 14:48] MED LIST changes: +FLEXERIL PO
[2021-01-29 15:14] LABS: ABSOLUTE BASOPHILS 0.1 thou/uL (0.0-0.2); ABSOLUTE EOSINOPHILS 0.1 thou/uL (0.0-0.7); ABSOLUTE LYMPHOCYTES 3.4 thou/uL (0.8-5.3); ABSOLUTE MONOCYTES 0.7 thou/uL (0.0-1.2); ABSOLUTE NEUTROPHILS 6.5 thou/uL (1.6-8.1); BASOPHILS 0.7 %; EOSINOPHILS 1.2 %; HEMATOCRIT 39.2 % (37.0-47.0); HEMOGLOBIN 13.3 gm/dL (12.0-15.0); LYMPHOCYTES 31.4 %; MCH 30.8 pg (26.0-34.0); MCHC 33.9 g/dL (28.0-37.0); MCV 90.7 fL (80.0-100.0); MONOCYTES 6.7 %; MPV 7.8 fl. (7.2-11.1); NUCLEATED RBCS 0 /100WBC; PLATELET COUNT* 374 thou/uL (150-400); RBC 4.33 mil/uL (4.20-5.00); RDW-CV 15.5 % (10.5-14.5); WBC 10.8 thou/uL (4.0-11.0)
[2021-01-29 15:22] LABS: CALCIUM 8.7 mg/dL (8.5-10.1); CREATININE 0.6 mg/dL (0.6-1.3); POTASSIUM 3.7 mmol/L (3.5-5.1)
[2021-01-29] MEDS ORDERED: HYDROCODON-ACE1 EAC7 PO (15:24)
[2021-01-29 15:27] LABS: ALBUMIN 3.5 g/dL (3.4-5.0); TOTAL BILIRUBIN 0.2 mg/dL (<0.1-1.0); TOTAL PROTEIN 7.2 g/dL (6.4-8.2)
[2021-01-29 15:41] VITALS: BP 149/68
--- NOTE | 2021-01-30 11:48 | EKG ---
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
== END 2021-01-29 15:42 | disposition home or self-care (01) ==
LOC: M.ERS 14:48
PROVIDERS: Family Medicine
DX: R07.89 Other chest pain (principal); I10 Essential (primary) hypertension; E11.9 Type 2 diabetes mellitus without complications; J44.9 Chronic obstructive pulmonary disease, unspecified; K58.9 Irritable bowel syndrome, unspecified; E66.01 Morbid (severe) obesity due to excess calories; F17.210 Nicotine dependence, cigarettes, uncomplicated; Z88.1 Allergy status to other antibiotic agents; Z88.2 Allergy status to sulfonamides; Z88.6 Allergy status to analgesic agent; Z88.8 Allergy status to other drugs, medicaments and biological substances; Z68.41 Body mass index [BMI] 40.0-44.9, adult

== ENCOUNTER 2021-02-10 22:30 | Emergency (ER) | payer OTHER, MEDICAID ==
[~2021-02-10] VITALS: Ht 154.9 cm; Wt 99.8 kg
[2021-02-10 23:34] LABS: HEMATOCRIT 37.6 % (37.0-47.0); HEMOGLOBIN 12.7 gm/dL (12.0-15.0); MCH 30.7 pg (26.0-34.0); MCHC 33.9 g/dL (28.0-37.0); MCV 90.7 fL (80.0-100.0); RBC 4.14 mil/uL (4.20-5.00); RDW-CV 15.9 % (10.5-14.5)
[2021-02-10 23:45] LABS: AMP/METHAMP Negative (Negative); BARBITURATES Negative (Negative); BENZODIAZEPINES Negative (Negative); COCAINE Negative (Negative); METHADONE Negative (Negative); OPIATES POSITIVE (Negative); PCP Negative (Negative); THC Negative (Negative)
[2021-02-10 23:47] LABS: CALCIUM 8.7 mg/dL (8.5-10.1); CREATININE 0.7 mg/dL (0.6-1.3); POTASSIUM 3.5 mmol/L (3.5-5.1)
[2021-02-10 23:51] LABS: ALBUMIN 3.4 g/dL (3.4-5.0); TOTAL BILIRUBIN 0.2 mg/dL (<0.1-1.0); TOTAL PROTEIN 6.9 g/dL (6.4-8.2)
[2021-02-11] MEDS ORDERED: MEDROLDOSEPACK PO (00:48)
[2021-02-11] MEDS ORDERED: NAPROSYN500 MG PO (00:48)
[2021-02-11 00:56] VITALS: BP 118/67
--- NOTE | 2021-02-11 10:29 | EKG ---
[place] [address] ELECTROCARDIOGRAM REPORT Name: BRITTON CAT Room: [facility]#: [id number] Admission: 02/10/21 Attend Phys: Discharge: 02/11/21 Date of : [birth year] Date of Service: 02/10/212234 Report #: [id number] THIS REPORT FOR: //name// [facility] ED Test Date: 2021-02-10 Test Time: 22:35:10 Pat Name: BRITTON CAT Department: Room: Gender: Director [employer]eron[employer]: [place] : 1985 Requested By: Paige Coe Order Number: [id number] MD: Javon Pinedo Measurements Intervals [place] Rate: 87 P: 25 [place]: 143 QRS: 46 QRSD: 92 T: 48 QT: 367 QTc: 442 Interpretive Statements Sinus rhythm Compared to ECG 01/29/2021 14:54:28 No significant changes Electronically Signed On 02-11-2021 10:29:40 CDT by Javon Pinedo [email or web address] <ELECTRONICALLY SIGNED> By: Javon Pinedo MD, [facility] 02/11/21 1029 2235 34 Javon Pinedo MD, [facility] /EPI
[2021-02-15] MEDS ORDERED: ACCU-CHECK SOF1 EACH SUBQ ×2 (13:32→13:33)
[2021-02-15] MEDS ORDERED: VITAMIN C500 M2 PO (13:35)
[2021-02-15] MEDS ORDERED: LIPITOR20 MG PO (13:36)
[2021-02-15] MEDS ORDERED: FAMOTIDINE 20 M20 MG PO (13:40)
[2021-02-15] MEDS ORDERED: HYDROXYZINE HCL10 M2 PO (13:45)
[2021-02-15] MEDS ORDERED: XYZAL5 MG PO (13:47)
[2021-02-15] MEDS ORDERED: SINGULAIR 10 MG10 MG PO (13:50)
[2021-02-15] MEDS ORDERED: OZEMPIC1 MG/0.71 SUBQ (13:51)
[2021-02-15] MEDS ORDERED: [UNRECOGNIZED DRUG - OTHER] PO (13:54)
== END 2021-02-11 00:56 | disposition home or self-care (01) ==
LOC: M.ERS 22:30
PROVIDERS: Personal Emergency Response Attendant
DX: R07.89 Other chest pain (principal); J44.9 Chronic obstructive pulmonary disease, unspecified; I10 Essential (primary) hypertension; E11.9 Type 2 diabetes mellitus without complications; F17.210 Nicotine dependence, cigarettes, uncomplicated; Z88.1 Allergy status to other antibiotic agents; Z88.6 Allergy status to analgesic agent; Z88.8 Allergy status to other drugs, medicaments and biological substances; Z79.899 Other long term (current) drug therapy

== ENCOUNTER 2021-02-19 15:13 | Emergency (ER) | payer OTHER, MEDICAID ==
[~2021-02-19] VITALS: Ht 154.9 cm; Wt 99.8 kg
[~2021-02-19 15:13] MED LIST changes: +ACCU-CHECK SOF1 EACH SUBQ; +HYDROXYZINE HCL10 M2 PO; +LIPITOR20 MG PO; +OZEMPIC1 MG/0.71 SUBQ; +SINGULAIR 10 MG10 MG PO; +VITAMIN C500 M2 PO; +XYZAL5 MG PO; +[UNRECOGNIZED DRUG - OTHER] PO
[2021-02-19 15:42] LABS: ABSOLUTE BASOPHILS 0.1 thou/uL (0.0-0.2); ABSOLUTE LYMPHOCYTES 1.7 thou/uL (0.8-5.3); ABSOLUTE MONOCYTES 0.3 thou/uL (0.0-1.2); ABSOLUTE NEUTROPHILS 10.4 thou/uL (1.6-8.1); BASOPHILS 1.1 %; EOSINOPHILS 0.1 %; HEMATOCRIT 39.6 % (37.0-47.0); HEMOGLOBIN 13.4 gm/dL (12.0-15.0); LYMPHOCYTES 13.5 %; MCH 30.7 pg (26.0-34.0); MCHC 33.7 g/dL (28.0-37.0); MCV 91.1 fL (80.0-100.0); MONOCYTES 2.3 %; MPV 8.1 fl. (7.2-11.1); NUCLEATED RBCS 0 /100WBC; PLATELET COUNT* 435 thou/uL (150-400); RBC 4.35 mil/uL (4.20-5.00); RDW-CV 15.6 % (10.5-14.5); WBC 12.5 thou/uL (4.0-11.0)
[2021-02-19 15:46] LABS: CALCIUM 8.6 mg/dL (8.5-10.1); CREATININE 0.8 mg/dL (0.6-1.3); POTASSIUM 4.3 mmol/L (3.5-5.1)
[2021-02-19 15:59] LABS: ALBUMIN 3.5 g/dL (3.4-5.0); TOTAL BILIRUBIN 0.2 mg/dL (<0.1-1.0); TOTAL PROTEIN 7.4 g/dL (6.4-8.2)
[2021-02-19] MEDS ORDERED: HYDROCODON-ACE1 EAC7 PO (16:32)
[2021-02-19 16:38] VITALS: BP 152/70
--- NOTE | 2021-02-20 12:48 | EKG ---
[place] [address] ELECTROCARDIOGRAM REPORT Name: BRITTON CAT Room: [facility]#: [id number] Admission: 02/19/21 Attend Phys: Discharge: 02/19/21 Date of : [birth year] Date of Service: 02/19/21 1540 Report #: [id number] THIS REPORT FOR: //name// [facility] ED Test Date: 2021-02-19 Test Time: 15:40:07 Pat Name: BRITTON CAT Department: Room: Gender: Neon Sign Servicer: [facility] : 1985 Requested By: Gage Huerta Order Number: [id number] MD: Gianfranco Aparicio Measurements Intervals [place] Rate: 81 P: 29 [place]: 123 QRS: 54 QRSD: 91 T: 43 QT: 361 QTc: 419 Interpretive Statements Sinus rhythm Compared to ECG 02/10/2021 22:35:10 No significant changes Electronically Signed On 02-20-2021 12:47:57 CDT by Gianfranco Aparicio [email or web address] <ELECTRONICALLY SIGNED> By: Gianfranco Aparicio MD, [facility] 02/20/21 1247 1540 1540 Gianfranco Aparicio MD, [facility] /EPI
== END 2021-02-19 16:41 | disposition home or self-care (01) ==
LOC: M.ERS 15:13
PROVIDERS: Family Medicine
DX: F41.0 Panic disorder [episodic paroxysmal anxiety] (principal); I10 Essential (primary) hypertension; E11.9 Type 2 diabetes mellitus without complications; J44.9 Chronic obstructive pulmonary disease, unspecified; F20.9 Schizophrenia, unspecified; E66.01 Morbid (severe) obesity due to excess calories; F17.210 Nicotine dependence, cigarettes, uncomplicated; Z68.41 Body mass index [BMI] 40.0-44.9, adult; Z88.1 Allergy status to other antibiotic agents; Z88.2 Allergy status to sulfonamides; Z88.6 Allergy status to analgesic agent

== ENCOUNTER 2021-02-26 21:43 | Emergency (ER) | payer OTHER, MEDICAID ==
[~2021-02-26] VITALS: Ht 154.9 cm; Wt 99.8 kg
[2021-02-26 22:05] LABS: URINE BILIRUBIN NEGATIVE (Negative); URINE BLOOD NEGATIVE (Negative); URINE CLARITY CLEAR; URINE COLOR YELLOW; URINE GLUCOSE-RANDOM TRACE (Negative); URINE KETONES NEGATIVE (Negative); URINE LEUKOCYTES-REFLEX NEGATIVE (Negative); URINE NITRITE-REFLEX NEGATIVE (Negative); URINE PROTEIN NEGATIVE (Negative); URINE SPECIFIC GRAVITY <= 1.005 (1.005-1.030); URINE UROBILINOGEN 0.2 E.U./dl (0.2-1.0)
[2021-02-26 22:44] LABS: ABSOLUTE BASOPHILS 0.1 thou/uL (0.0-0.2); ABSOLUTE EOSINOPHILS 0.1 thou/uL (0.0-0.7); ABSOLUTE LYMPHOCYTES 4.8 thou/uL (0.8-5.3); ABSOLUTE MONOCYTES 0.9 thou/uL (0.0-1.2); BASOPHILS 0.9 %; EOSINOPHILS 0.6 %; HEMATOCRIT 39.5 % (37.0-47.0); HEMOGLOBIN 13.5 gm/dL (12.0-15.0); LYMPHOCYTES 32.1 %; MCHC 34.3 g/dL (28.0-37.0); MCV 90.4 fL (80.0-100.0); MONOCYTES 5.8 %; MPV 8.1 fl. (7.2-11.1); NUCLEATED RBCS 0 /100WBC; PLATELET COUNT* 428 thou/uL (150-400); POLYS 60.6 %; RBC 4.37 mil/uL (4.20-5.00); RDW-CV 15.9 % (10.5-14.5); WBC 14.9 thou/uL (4.0-11.0)
[2021-02-26 22:50] LABS: CALCIUM 8.7 mg/dL (8.5-10.1); CREATININE 0.7 mg/dL (0.6-1.3); POTASSIUM 3.7 mmol/L (3.5-5.1)
[2021-02-26 22:55] LABS: ALBUMIN 3.5 g/dL (3.4-5.0); TOTAL BILIRUBIN 0.3 mg/dL (<0.1-1.0); TOTAL PROTEIN 7.4 g/dL (6.4-8.2)
[2021-02-26] MEDS ORDERED: ZOFRAN ODT4 MG PO (23:59)
[2021-02-27 00:04] VITALS: BP 156/78
== END 2021-02-27 00:04 | disposition home or self-care (01) ==
LOC: M.ERS 21:43
PROVIDERS: Emergency Medicine
DX: R10.31 Right lower quadrant pain (principal); J45.909 Unspecified asthma, uncomplicated; I10 Essential (primary) hypertension; E11.9 Type 2 diabetes mellitus without complications; J44.9 Chronic obstructive pulmonary disease, unspecified; E66.01 Morbid (severe) obesity due to excess calories; F17.210 Nicotine dependence, cigarettes, uncomplicated; Z68.41 Body mass index [BMI] 40.0-44.9, adult; Z88.1 Allergy status to other antibiotic agents; Z88.6 Allergy status to analgesic agent; Z88.2 Allergy status to sulfonamides; Z88.8 Allergy status to other drugs, medicaments and biological substances

== ENCOUNTER 2021-03-07 13:38 | Emergency (ER) | payer OTHER, MEDICAID ==
[~2021-03-07] VITALS: Ht 154.9 cm; Wt 104.3 kg
[2021-03-07 14:19] LABS: ABSOLUTE BASOPHILS 0.1 thou/uL (0.0-0.2); ABSOLUTE EOSINOPHILS 0.1 thou/uL (0.0-0.7); ABSOLUTE LYMPHOCYTES 2.3 thou/uL (0.8-5.3); ABSOLUTE MONOCYTES 0.4 thou/uL (0.0-1.2); ABSOLUTE NEUTROPHILS 5.9 thou/uL (1.6-8.1); BASOPHILS 0.8 %; EOSINOPHILS 1.3 %; HEMATOCRIT 37.7 % (37.0-47.0); HEMOGLOBIN 13.2 gm/dL (12.0-15.0); LYMPHOCYTES 26.7 %; MCH 31.7 pg (26.0-34.0); MCHC 35.1 g/dL (28.0-37.0); MCV 90.4 fL (80.0-100.0); MONOCYTES 4.2 %; MPV 7.7 fl. (7.2-11.1); NUCLEATED RBCS 0 /100WBC; PLATELET COUNT* 357 thou/uL (150-400); RBC 4.17 mil/uL (4.20-5.00); RDW-CV 16.3 % (10.5-14.5); WBC 8.7 thou/uL (4.0-11.0)
[2021-03-07 14:20] LABS: URINE BILIRUBIN NEGATIVE (Negative); URINE BLOOD NEGATIVE (Negative); URINE CLARITY CLEAR; URINE COLOR YELLOW; URINE GLUCOSE-RANDOM 3+ (Negative); URINE KETONES NEGATIVE (Negative); URINE LEUKOCYTES-REFLEX NEGATIVE (Negative); URINE NITRITE-REFLEX NEGATIVE (Negative); URINE PROTEIN NEGATIVE (Negative); URINE SPECIFIC GRAVITY <= 1.005 (1.005-1.030); URINE UROBILINOGEN 0.2 E.U./dl (0.2-1.0)
[2021-03-07 14:30] LABS: CALCIUM 8.7 mg/dL (8.5-10.1); CREATININE 0.7 mg/dL (0.6-1.3); POTASSIUM 3.9 mmol/L (3.5-5.1)
[2021-03-07 14:34] LABS: ALBUMIN 3.4 g/dL (3.4-5.0); TOTAL BILIRUBIN 0.2 mg/dL (<0.1-1.0); TOTAL PROTEIN 7.1 g/dL (6.4-8.2)
[2021-03-07] MEDS ORDERED: LOPERAMIDE 2 MG2 M1 PO (16:08)
[2021-03-07] MEDS ORDERED: BENTYL 10 MG CA10 M1 PO (16:08)
[2021-03-07] MEDS ORDERED: ZOFRAN ODT4 MG PO (16:09)
[2021-03-07 16:30] VITALS: BP 120/70
--- NOTE | 2021-03-08 15:23 | EKG ---
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: FIORELLA : 1985 Requested By: Ophelia Garcia Order Number: [id number] MD: Floyd Kennedy Measurements Intervals [place] Rate: 86 P: 43 [place]: 143 QRS: 53 QRSD: 91 T: 34 QT: 360 QTc: 431 Interpretive Statements Sinus rhythm Probable left atrial enlargement Compared to ECG 02/19/2021 15:40:07 No significant changes Electronically Signed On 03-08-2021 15:23:48 CDT by Floyd Kennedy [email or web address] <ELECTRONICALLY SIGNED> By: Floyd Kennedy MD, [facility] 03/08/21 1523 1410 1410 Floyd Kennedy MD, [facility] /EPI
== END 2021-03-07 16:31 | disposition home or self-care (01) ==
LOC: M.ERS 13:38
PROVIDERS: Nurse Practitioner Family
DX: R10.31 Right lower quadrant pain (principal); R19.7 Diarrhea, unspecified; R11.0 Nausea; I10 Essential (primary) hypertension; R74.8 Abnormal levels of other serum enzymes; J45.909 Unspecified asthma, uncomplicated; J44.9 Chronic obstructive pulmonary disease, unspecified; E11.9 Type 2 diabetes mellitus without complications; E66.09 Other obesity due to excess calories; F17.210 Nicotine dependence, cigarettes, uncomplicated; Z88.1 Allergy status to other antibiotic agents; Z88.2 Allergy status to sulfonamides; Z88.8 Allergy status to other drugs, medicaments and biological substances

== ENCOUNTER 2021-03-14 19:19 | Emergency (ER) | payer OTHER, MEDICAID ==
[~2021-03-14] VITALS: Ht 154.9 cm; Wt 104.3 kg
[~2021-03-14 19:19] MED LIST changes: +BENTYL 10 MG CA10 M1 PO; +LOPERAMIDE 2 MG2 M1 PO
[2021-03-14 22:17] VITALS: BP 130/86
== END 2021-03-14 22:17 | disposition home or self-care (01) ==
LOC: M.ERS 19:19
DX: S93.401A Sprain of unspecified ligament of right ankle, initial encounter (principal); J45.909 Unspecified asthma, uncomplicated; I10 Essential (primary) hypertension; J44.9 Chronic obstructive pulmonary disease, unspecified; E66.01 Morbid (severe) obesity due to excess calories; F17.210 Nicotine dependence, cigarettes, uncomplicated; Z88.1 Allergy status to other antibiotic agents; Z88.2 Allergy status to sulfonamides; X50.1XXA Overexertion from prolonged static or awkward postures, initial encounter; Y93.01 Activity, walking, marching and hiking; Y92.89 Other specified places as the place of occurrence of the external cause; Y99.8 Other external cause status

== ENCOUNTER 2021-03-19 14:49 | Emergency (ER) | payer OTHER, MEDICAID ==
[~2021-03-19] VITALS: Ht 154.9 cm; Wt 90.7 kg
[2021-03-19 16:17] VITALS: BP 148/82
== END 2021-03-19 16:20 | disposition home or self-care (01) ==
LOC: M.ERS 14:49
DX: S93.491A Sprain of other ligament of right ankle, initial encounter (principal); J45.909 Unspecified asthma, uncomplicated; I10 Essential (primary) hypertension; E11.9 Type 2 diabetes mellitus without complications; E66.01 Morbid (severe) obesity due to excess calories; F17.210 Nicotine dependence, cigarettes, uncomplicated; Z68.37 Body mass index [BMI] 37.0-37.9, adult; Z79.899 Other long term (current) drug therapy; Z88.1 Allergy status to other antibiotic agents; Z88.6 Allergy status to analgesic agent; Z88.2 Allergy status to sulfonamides; Z88.8 Allergy status to other drugs, medicaments and biological substances; W01.0XXA Fall on same level from slipping, tripping and stumbling without subsequent striking against object, initial encounter; Y93.89 Activity, other specified; Y92.89 Other specified places as the place of occurrence of the external cause; Y99.8 Other external cause status

== ENCOUNTER 2021-04-16 19:22 | Emergency (ER) | payer OTHER, MEDICAID ==
[~2021-04-16] VITALS: Ht 154.9 cm; Wt 104.3 kg
[2021-04-16] MEDS ORDERED: DOXYCYCLINE 10100 MG PO (19:42)
[2021-04-16 19:49] VITALS: BP 152/71
== END 2021-04-16 19:49 | disposition home or self-care (01) ==
LOC: M.ERS 19:22
DX: L72.3 Sebaceous cyst (principal); H92.03 Otalgia, bilateral; F32.9 Major depressive disorder, single episode, unspecified; F41.9 Anxiety disorder, unspecified; I10 Essential (primary) hypertension; E11.9 Type 2 diabetes mellitus without complications; F20.9 Schizophrenia, unspecified; J44.9 Chronic obstructive pulmonary disease, unspecified; E66.01 Morbid (severe) obesity due to excess calories; F17.210 Nicotine dependence, cigarettes, uncomplicated; Z68.41 Body mass index [BMI] 40.0-44.9, adult; Z79.899 Other long term (current) drug therapy; Z88.1 Allergy status to other antibiotic agents; Z88.6 Allergy status to analgesic agent; Z88.2 Allergy status to sulfonamides; Z88.8 Allergy status to other drugs, medicaments and biological substances

== ENCOUNTER 2021-04-26 12:54 | Emergency (ER) | payer OTHER, MEDICAID ==
[~2021-04-26] VITALS: Ht 154.9 cm; Wt 99.8 kg
[2021-04-26] MEDS ORDERED: HYDROCODON-ACE1 EAC7 PO (14:11)
[2021-04-26 14:15] VITALS: BP 124/72
== END 2021-04-26 14:16 | disposition home or self-care (01) ==
LOC: M.ERS 12:54
DX: M43.6 Torticollis (principal); I10 Essential (primary) hypertension; E11.9 Type 2 diabetes mellitus without complications; J44.9 Chronic obstructive pulmonary disease, unspecified; E66.01 Morbid (severe) obesity due to excess calories; F17.210 Nicotine dependence, cigarettes, uncomplicated; Z68.41 Body mass index [BMI] 40.0-44.9, adult; Z79.899 Other long term (current) drug therapy; Z88.1 Allergy status to other antibiotic agents; Z88.2 Allergy status to sulfonamides; Z88.6 Allergy status to analgesic agent; Z88.8 Allergy status to other drugs, medicaments and biological substances; Z79.4 Long term (current) use of insulin

== ENCOUNTER 2021-04-28 12:23 | Emergency (ER) | payer OTHER, MEDICAID ==
[~2021-04-28] VITALS: Ht 154.9 cm; Wt 107.0 kg
[2021-04-28 13:30] VITALS: BP 129/81
== END 2021-04-28 13:30 | disposition home or self-care (01) ==
LOC: M.ERS 12:23
DX: M54.5 Low back pain (principal); J45.909 Unspecified asthma, uncomplicated; F41.9 Anxiety disorder, unspecified; I10 Essential (primary) hypertension; E11.9 Type 2 diabetes mellitus without complications; F20.9 Schizophrenia, unspecified; J44.9 Chronic obstructive pulmonary disease, unspecified; F17.210 Nicotine dependence, cigarettes, uncomplicated; E66.01 Morbid (severe) obesity due to excess calories; Z79.899 Other long term (current) drug therapy; Z88.8 Allergy status to other drugs, medicaments and biological substances; Z88.2 Allergy status to sulfonamides; Z88.5 Allergy status to narcotic agent; Z88.6 Allergy status to analgesic agent; Z88.0 Allergy status to penicillin; V43.52XA Car driver injured in collision with other type car in traffic accident, initial encounter; Y93.89 Activity, other specified; Y92.89 Other specified places as the place of occurrence of the external cause; Y99.8 Other external cause status

== ENCOUNTER 2021-05-04 21:09 | Emergency (ER) | payer OTHER, MEDICAID ==
[~2021-05-04] VITALS: Ht 154.9 cm; Wt 104.3 kg
[2021-05-04] MEDS ORDERED: CIPROFLOX-DEXA7.5 ML OTIC (21:42)
[2021-05-04 21:47] VITALS: BP 154/82
== END 2021-05-04 21:49 | disposition home or self-care (01) ==
LOC: M.ERS 21:09
DX: T16.1XXA Foreign body in right ear, initial encounter (principal); F32.9 Major depressive disorder, single episode, unspecified; J45.909 Unspecified asthma, uncomplicated; F41.9 Anxiety disorder, unspecified; I10 Essential (primary) hypertension; E11.9 Type 2 diabetes mellitus without complications; F20.9 Schizophrenia, unspecified; E66.01 Morbid (severe) obesity due to excess calories; F17.210 Nicotine dependence, cigarettes, uncomplicated; J44.9 Chronic obstructive pulmonary disease, unspecified; Z79.899 Other long term (current) drug therapy; Z88.6 Allergy status to analgesic agent; Z88.2 Allergy status to sulfonamides; Z88.8 Allergy status to other drugs, medicaments and biological substances; Z88.9 Allergy status to unspecified drugs, medicaments and biological substances; X58.XXXA Exposure to other specified factors, initial encounter; Y93.89 Activity, other specified; Y92.89 Other specified places as the place of occurrence of the external cause; Y99.8 Other external cause status

== ENCOUNTER 2021-05-22 15:40 | Emergency (ER) | payer OTHER, MEDICAID ==
[~2021-05-22] VITALS: Ht 154.9 cm; Wt 104.3 kg
[~2021-05-22 15:40] MED LIST changes: +CIPROFLOX-DEXA7.5 ML OTIC
[2021-05-22] MEDS ORDERED: HYDROCODON-ACE1 EAC7 PO (16:15)
[2021-05-22] MEDS ORDERED: ZOFRAN ODT4 MG PO (16:20)
[2021-05-22] MEDS ORDERED: CARAFATE1 GM/10 ML PO (16:20)
[2021-05-22 17:15] VITALS: BP 118/63
== END 2021-05-22 17:16 | disposition home or self-care (01) ==
LOC: M.ERS 15:40
DX: R10.13 Epigastric pain (principal); R11.0 Nausea; F32.9 Major depressive disorder, single episode, unspecified; J45.909 Unspecified asthma, uncomplicated; F41.9 Anxiety disorder, unspecified; I10 Essential (primary) hypertension; E11.9 Type 2 diabetes mellitus without complications; J44.9 Chronic obstructive pulmonary disease, unspecified; E66.01 Morbid (severe) obesity due to excess calories; F20.9 Schizophrenia, unspecified; F17.210 Nicotine dependence, cigarettes, uncomplicated; Z68.41 Body mass index [BMI] 40.0-44.9, adult; Z79.899 Other long term (current) drug therapy; Z88.1 Allergy status to other antibiotic agents; Z88.6 Allergy status to analgesic agent; Z88.2 Allergy status to sulfonamides; Z88.8 Allergy status to other drugs, medicaments and biological substances

== ENCOUNTER 2021-05-26 21:05 | Emergency (ER) | payer OTHER, MEDICAID ==
[~2021-05-26 21:05] MED LIST changes: +CARAFATE1 GM/10 ML PO
== END 2021-05-26 23:09 | disposition left against medical advice (07) ==
LOC: M.ERS 21:05
DX: R10.9 Unspecified abdominal pain (principal); Z53.21 Procedure and treatment not carried out due to patient leaving prior to being seen by health care provider

== ENCOUNTER 2021-06-04 17:29 | Emergency (ER) | payer OTHER, MEDICAID ==
[~2021-06-04] VITALS: Ht 154.9 cm; Wt 104.3 kg
[2021-06-04 20:39] LABS: URINE BILIRUBIN NEGATIVE (Negative); URINE BLOOD NEGATIVE (Negative); URINE CLARITY CLEAR; URINE COLOR YELLOW; URINE GLUCOSE-RANDOM 1+ (Negative); URINE KETONES NEGATIVE (Negative); URINE LEUKOCYTES-REFLEX TRACE (Negative); URINE NITRITE-REFLEX NEGATIVE (Negative); URINE PROTEIN NEGATIVE (Negative); URINE SPECIFIC GRAVITY 1.015 (1.005-1.030); URINE UROBILINOGEN 0.2 E.U./dl (0.2-1.0)
[2021-06-04 20:47] LABS: BACTERIA-REFLEX 1-9 Few /HPF (None Seen); CASTS None Seen /LPF (None Seen); CRYSTALS None Seen /LPF (None Seen); SQUAMOUS >10 Many /LPF (0-3); URINE RBC 0-2 Rare /HPF (0-2); URINE WBC-REFLEX 0-5 Rare /HPF (0-5)
[2021-06-04 21:44] VITALS: BP 127/98
== END 2021-06-04 21:44 | disposition home or self-care (01) ==
LOC: M.ERS 17:29
PROVIDERS: Physician Assistant
DX: R10.12 Left upper quadrant pain (principal); J45.909 Unspecified asthma, uncomplicated; I10 Essential (primary) hypertension; E11.9 Type 2 diabetes mellitus without complications; F20.9 Schizophrenia, unspecified; E66.01 Morbid (severe) obesity due to excess calories; J44.9 Chronic obstructive pulmonary disease, unspecified; F17.210 Nicotine dependence, cigarettes, uncomplicated; Z79.899 Other long term (current) drug therapy; Z88.1 Allergy status to other antibiotic agents; Z88.6 Allergy status to analgesic agent; Z88.2 Allergy status to sulfonamides

== ENCOUNTER 2021-07-03 11:16 | Emergency (ER) | payer OTHER, MEDICAID ==
[~2021-07-03] VITALS: Ht 154.9 cm; Wt 104.3 kg
[2021-07-03 14:35] VITALS: BP 121/70
== END 2021-07-03 14:35 | disposition home or self-care (01) ==
LOC: M.ERS 11:16
DX: S63.502A Unspecified sprain of left wrist, initial encounter (principal); F32.9 Major depressive disorder, single episode, unspecified; F41.9 Anxiety disorder, unspecified; I10 Essential (primary) hypertension; E11.9 Type 2 diabetes mellitus without complications; F20.9 Schizophrenia, unspecified; J44.9 Chronic obstructive pulmonary disease, unspecified; E66.01 Morbid (severe) obesity due to excess calories; F17.210 Nicotine dependence, cigarettes, uncomplicated; Z79.899 Other long term (current) drug therapy; Z88.1 Allergy status to other antibiotic agents; Z88.8 Allergy status to other drugs, medicaments and biological substances; Z88.6 Allergy status to analgesic agent; Z88.2 Allergy status to sulfonamides; Z68.41 Body mass index [BMI] 40.0-44.9, adult; X50.1XXA Overexertion from prolonged static or awkward postures, initial encounter; Y93.89 Activity, other specified; Y92.89 Other specified places as the place of occurrence of the external cause; Y99.8 Other external cause status

== ENCOUNTER 2021-07-08 19:07 | Emergency (ER) | payer OTHER, MEDICAID ==
[~2021-07-08] VITALS: Ht 154.9 cm; Wt 104.3 kg
[2021-07-08 20:09] LABS: ABSOLUTE EOSINOPHILS 0.1 thou/uL (0.0-0.7); ABSOLUTE LYMPHOCYTES 2.8 thou/uL (0.8-5.3); ABSOLUTE MONOCYTES 0.5 thou/uL (0.0-1.2); ABSOLUTE NEUTROPHILS 4.7 thou/uL (1.6-8.1); BASOPHILS 0.4 %; EOSINOPHILS 1.2 %; HEMATOCRIT 38.4 % (37.0-47.0); HEMOGLOBIN 12.4 gm/dL (12.0-15.0); LYMPHOCYTES 34.6 %; MCH 28.3 pg (26.0-34.0); MCHC 32.4 g/dL (28.0-37.0); MCV 87.4 fL (80.0-100.0); MONOCYTES 6.6 %; MPV 7.8 fl. (7.2-11.1); NUCLEATED RBCS 0 /100WBC; PLATELET COUNT* 399 thou/uL (150-400); POLYS 57.2 %; RBC 4.39 mil/uL (4.20-5.00); RDW-CV 18.1 % (10.5-14.5); WBC 8.2 thou/uL (4.0-11.0)
[2021-07-08 20:16] LABS: CALCIUM 8.9 mg/dL (8.5-10.1); CREATININE 0.8 mg/dL (0.6-1.3); POTASSIUM 4.1 mmol/L (3.5-5.1)
[2021-07-08 20:30] LABS: ALBUMIN 3.3 g/dL (3.4-5.0); MAGNESIUM 2.1 mg/dL (1.8-2.4); TOTAL BILIRUBIN 0.2 mg/dL (<0.1-1.0); TOTAL PROTEIN 7.3 g/dL (6.4-8.2)
[2021-07-08 20:32] LABS: URINE BILIRUBIN NEGATIVE (Negative); URINE BLOOD NEGATIVE (Negative); URINE CLARITY CLEAR; URINE COLOR YELLOW; URINE GLUCOSE-RANDOM 3+ (Negative); URINE KETONES NEGATIVE (Negative); URINE LEUKOCYTES-REFLEX NEGATIVE (Negative); URINE NITRITE-REFLEX NEGATIVE (Negative); URINE PROTEIN NEGATIVE (Negative); URINE UROBILINOGEN 0.2 E.U./dl (0.2-1.0)
[2021-07-08] MEDS ORDERED: INDOMETHACIN 2525 MG PO (21:49)
[2021-07-08] MEDS ORDERED: NORCO5 PO (21:49)
[2021-07-08 21:55] VITALS: BP 115/70
--- NOTE | 2021-07-09 10:19 | EKG ---
[place] [address] ELECTROCARDIOGRAM REPORT Name: LIONEL CATMG WRIGHT Room: 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
== END 2021-07-08 21:55 | disposition home or self-care (01) ==
LOC: M.ERS 19:07
PROVIDERS: Emergency Medicine
DX: G43.109 Migraine with aura, not intractable, without status migrainosus (principal); F32.9 Major depressive disorder, single episode, unspecified; J44.9 Chronic obstructive pulmonary disease, unspecified; F41.9 Anxiety disorder, unspecified; I10 Essential (primary) hypertension; E11.9 Type 2 diabetes mellitus without complications; F20.9 Schizophrenia, unspecified; E66.01 Morbid (severe) obesity due to excess calories; F17.210 Nicotine dependence, cigarettes, uncomplicated; Z79.899 Other long term (current) drug therapy; Z88.6 Allergy status to analgesic agent; Z88.2 Allergy status to sulfonamides; Z88.1 Allergy status to other antibiotic agents

== ENCOUNTER 2021-07-11 14:44 | Emergency (ER) | payer OTHER, MEDICAID ==
[~2021-07-11] VITALS: Ht 154.9 cm; Wt 104.3 kg
[~2021-07-11 14:44] MED LIST changes: +INDOMETHACIN 2525 MG PO; +NORCO5 PO
[2021-07-11 15:43] LABS: ABSOLUTE EOSINOPHILS 0.1 thou/uL (0.0-0.7); EOSINOPHILS 1.4 %; MCHC 32.8 g/dL (28.0-37.0); RBC 4.55 mil/uL (4.20-5.00)
[2021-07-11 15:45] LABS: ABSOLUTE BASOPHILS 0.1 thou/uL (0.0-0.2); ABSOLUTE LYMPHOCYTES 2.7 thou/uL (0.8-5.3); ABSOLUTE MONOCYTES 0.7 thou/uL (0.0-1.2); ABSOLUTE NEUTROPHILS 5.7 thou/uL (1.6-8.1); BASOPHILS 0.7 %; HEMATOCRIT 39.5 % (37.0-47.0); LYMPHOCYTES 29.3 %; MCH 28.6 pg (26.0-34.0); MONOCYTES 7.1 %; MPV 7.8 fl. (7.2-11.1); NUCLEATED RBCS 0 /100WBC; PLATELET COUNT* 388 thou/uL (150-400); POLYS 61.5 %; RDW-CV 17.1 % (10.5-14.5); WBC 9.3 thou/uL (4.0-11.0)
[2021-07-11 15:52] LABS: CALCIUM 8.5 mg/dL (8.5-10.1); CREATININE 0.7 mg/dL (0.6-1.3); POTASSIUM 3.7 mmol/L (3.5-5.1)
[2021-07-11 16:00] LABS: ALBUMIN 3.4 g/dL (3.4-5.0); TOTAL BILIRUBIN 0.2 mg/dL (<0.1-1.0); TOTAL PROTEIN 7.2 g/dL (6.4-8.2)
[2021-07-11 16:50] LABS: ESR (SEDRATE) 14 mm/hr (0-20)
[2021-07-11 20:20] VITALS: BP 120/76
== END 2021-07-11 20:22 | disposition home or self-care (01) ==
LOC: M.ERS 14:44
PROVIDERS: Nurse Practitioner Family
DX: G43.909 Migraine, unspecified, not intractable, without status migrainosus (principal); F32.9 Major depressive disorder, single episode, unspecified; J45.909 Unspecified asthma, uncomplicated; F41.9 Anxiety disorder, unspecified; I10 Essential (primary) hypertension; E11.9 Type 2 diabetes mellitus without complications; F20.9 Schizophrenia, unspecified; E66.01 Morbid (severe) obesity due to excess calories; J44.9 Chronic obstructive pulmonary disease, unspecified; F17.210 Nicotine dependence, cigarettes, uncomplicated; Z79.899 Other long term (current) drug therapy; Z88.0 Allergy status to penicillin; Z88.2 Allergy status to sulfonamides; Z88.6 Allergy status to analgesic agent; Z88.1 Allergy status to other antibiotic agents

== ENCOUNTER → 2021-07-26 | Outpatient (CLI) | payer OTHER, MEDICAID | LOC: M.MRI 13:50 | PROVIDERS: ATTEND Family Medicine | DX: J32.0 Chronic maxillary sinusitis (principal); R20.0 Anesthesia of skin ==

== ENCOUNTER 2021-08-25 10:44 | Emergency (ER) | payer OTHER, MEDICAID ==
[~2021-08-25] VITALS: Ht 154.9 cm; Wt 104.3 kg
[2021-08-25] MEDS ORDERED: PROAIR HFA8.5 GM INH (13:00)
[2021-08-25 13:09] VITALS: BP 130/77
== END 2021-08-25 13:10 | disposition home or self-care (01) ==
LOC: M.ERS 10:44
DX: U07.1 COVID-19 (principal); J44.9 Chronic obstructive pulmonary disease, unspecified; F32.9 Major depressive disorder, single episode, unspecified; I10 Essential (primary) hypertension; E11.9 Type 2 diabetes mellitus without complications; F20.9 Schizophrenia, unspecified; E66.01 Morbid (severe) obesity due to excess calories; F17.210 Nicotine dependence, cigarettes, uncomplicated; Z68.41 Body mass index [BMI] 40.0-44.9, adult; Z79.899 Other long term (current) drug therapy; Z88.1 Allergy status to other antibiotic agents; Z88.6 Allergy status to analgesic agent; Z88.8 Allergy status to other drugs, medicaments and biological substances; Z88.2 Allergy status to sulfonamides

== ENCOUNTER 2021-09-30 14:57 | Emergency (ER) | payer OTHER, MEDICAID ==
[~2021-09-30] VITALS: Ht 154.9 cm; Wt 104.3 kg
[~2021-09-30 14:57] MED LIST changes: +PROAIR HFA8.5 GM INH
[2021-09-30 15:48] LABS: ABSOLUTE BASOPHILS 0.1 thou/uL (0.0-0.2); ABSOLUTE EOSINOPHILS 0.1 thou/uL (0.0-0.7); ABSOLUTE LYMPHOCYTES 3.2 thou/uL (0.8-5.3); ABSOLUTE MONOCYTES 0.6 thou/uL (0.0-1.2); ABSOLUTE NEUTROPHILS 6.8 thou/uL (1.6-8.1); BASOPHILS 1.3 %; EOSINOPHILS 1.1 %; HEMOGLOBIN 12.9 gm/dL (12.0-15.0); LYMPHOCYTES 29.6 %; MCH 26.8 pg (26.0-34.0); MCHC 32.3 g/dL (28.0-37.0); MCV 82.9 fL (80.0-100.0); MONOCYTES 5.4 %; NUCLEATED RBCS 0 /100WBC; PLATELET COUNT* 426 thou/uL (150-400); POLYS 62.6 %; RBC 4.82 mil/uL (4.20-5.00); RDW-CV 18.9 % (10.5-14.5); URINE BILIRUBIN NEGATIVE (Negative); URINE BLOOD NEGATIVE (Negative); URINE CLARITY CLEAR; URINE COLOR YELLOW; URINE GLUCOSE-RANDOM TRACE (Negative); URINE KETONES TRACE (Negative); URINE LEUKOCYTES-REFLEX NEGATIVE (Negative); URINE NITRITE-REFLEX NEGATIVE (Negative); URINE PROTEIN NEGATIVE (Negative); URINE SPECIFIC GRAVITY >= 1.030 (1.005-1.030); URINE UROBILINOGEN 0.2 E.U./dl (0.2-1.0); WBC 10.9 thou/uL (4.0-11.0)
[2021-09-30 16:17] LABS: CALCIUM 8.8 mg/dL (8.5-10.1); CREATININE 0.6 mg/dL (0.6-1.3); POTASSIUM 3.6 mmol/L (3.5-5.1)
[2021-09-30 16:24] LABS: ALBUMIN 3.6 g/dL (3.4-5.0); TOTAL BILIRUBIN 0.4 mg/dL (<0.1-1.0); TOTAL PROTEIN 7.2 g/dL (6.4-8.2)
[2021-09-30] MEDS ORDERED: ZOFRAN ODT4 MG DISSOLVE (17:58)
[2021-09-30] MEDS ORDERED: BENTYL 10 MG CA10 M1 PO (17:58)
[2021-09-30 18:13] VITALS: BP 143/78
== END 2021-09-30 18:15 | disposition home or self-care (01) ==
LOC: M.ERS 14:57
PROVIDERS: Emergency Medicine Emergency Medical Services
DX: R10.31 Right lower quadrant pain (principal); F32.9 Major depressive disorder, single episode, unspecified; J44.9 Chronic obstructive pulmonary disease, unspecified; F41.9 Anxiety disorder, unspecified; I10 Essential (primary) hypertension; E11.9 Type 2 diabetes mellitus without complications; E66.01 Morbid (severe) obesity due to excess calories; F17.210 Nicotine dependence, cigarettes, uncomplicated; Z79.899 Other long term (current) drug therapy; Z88.6 Allergy status to analgesic agent; Z88.2 Allergy status to sulfonamides; Z88.0 Allergy status to penicillin

== ENCOUNTER 2021-10-04 20:07 | Emergency (ER) | payer OTHER, MEDICAID ==
[~2021-10-04] VITALS: Ht 154.9 cm; Wt 104.3 kg
[2021-10-04 20:11] VITALS: BP 145/82
--- NOTE | 2021-10-05 09:15 | EKG ---
[place] [address] ELECTROCARDIOGRAM REPORT Name: BRITTON CAT Room: [facility]#: [id number] Admission: 10/04/21 Attend Phys: Discharge: 10/04/21 Date of : [birth year] Date of Service: 10/04/212016 Report #: [id number] THIS REPORT FOR: //name// [facility] ED Test Date: 2021-10-04 Test Time: 20:17:01 Pat Name: BRITTON CAT Department: Room: Gender: F Senior Branch Manager: BOB : 1985 Requested By: Paige Coe Order Number: [id number] MD: Javon Pinedo Measurements Intervals [place] Rate: 80 P: 28 [place]: 147 QRS: 41 QRSD: 95 T: 46 QT: 376 QTc: 434 Interpretive Statements Sinus rhythm Baseline wander in lead(s) V2 Compared to ECG 07/08/2021 19:20:10 No significant changes Electronically Signed On 10-05-2021 9:00:56 QUALITY ASSURANCE COORDINATOR by Javon Pinedo [email or web address] <ELECTRONICALLY SIGNED> By: Javon Pinedo MD, [facility] 10/05/21 0900 16 16 Javon Pinedo MD, [facility] /EPI
[2021-10-05] MEDS ORDERED: HYDROCODON-ACE1 EAC7 PO (15:39)
[2021-10-05] MEDS ORDERED: CIPRO500 M1 PO (15:39)
== END 2021-10-04 22:39 | disposition left against medical advice (07) ==
LOC: M.ERS 20:07
DX: R07.89 Other chest pain (principal); R10.9 Unspecified abdominal pain; I10 Essential (primary) hypertension; F41.9 Anxiety disorder, unspecified; F32.9 Major depressive disorder, single episode, unspecified; J45.909 Unspecified asthma, uncomplicated; E11.40 Type 2 diabetes mellitus with diabetic neuropathy, unspecified; J44.9 Chronic obstructive pulmonary disease, unspecified; E66.01 Morbid (severe) obesity due to excess calories; Z53.21 Procedure and treatment not carried out due to patient leaving prior to being seen by health care provider; Z88.2 Allergy status to sulfonamides; Z88.1 Allergy status to other antibiotic agents; Z88.8 Allergy status to other drugs, medicaments and biological substances; Z88.5 Allergy status to narcotic agent; Z88.6 Allergy status to analgesic agent

== ENCOUNTER 2021-10-05 11:50 | Emergency (ER) | payer OTHER, MEDICAID ==
[~2021-10-05] VITALS: Ht 154.9 cm; Wt 104.3 kg
[2021-10-05 12:23] LABS: ABSOLUTE BASOPHILS 0.1 thou/uL (0.0-0.2); ABSOLUTE EOSINOPHILS 0.1 thou/uL (0.0-0.7); ABSOLUTE LYMPHOCYTES 2.4 thou/uL (0.8-5.3); ABSOLUTE MONOCYTES 0.5 thou/uL (0.0-1.2); ABSOLUTE NEUTROPHILS 5.4 thou/uL (1.6-8.1); BASOPHILS 0.9 %; EOSINOPHILS 1.2 %; HEMATOCRIT 38.3 % (37.0-47.0); HEMOGLOBIN 12.5 gm/dL (12.0-15.0); LYMPHOCYTES 28.2 %; MCHC 32.7 g/dL (28.0-37.0); MCV 82.4 fL (80.0-100.0); MONOCYTES 6.1 %; MPV 7.6 fl. (7.2-11.1); NUCLEATED RBCS 0 /100WBC; PLATELET COUNT* 422 thou/uL (150-400); POLYS 63.6 %; RBC 4.65 mil/uL (4.20-5.00); RDW-CV 18.9 % (10.5-14.5); WBC 8.5 thou/uL (4.0-11.0)
[2021-10-05 12:51] LABS: CALCIUM 9.3 mg/dL (8.5-10.1); CREATININE 0.7 mg/dL (0.6-1.3); POTASSIUM 4.2 mmol/L (3.5-5.1)
[2021-10-05 13:02] LABS: ALBUMIN 3.7 g/dL (3.4-5.0); TOTAL BILIRUBIN 0.3 mg/dL (<0.1-1.0); TOTAL PROTEIN 7.6 g/dL (6.4-8.2)
--- NOTE | 2021-10-05 14:03 | EKG ---
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
[2021-10-05 14:27] LABS: URINE BILIRUBIN NEGATIVE (Negative); URINE BLOOD NEGATIVE (Negative); URINE CLARITY SL CLOUDY; URINE COLOR YELLOW; URINE GLUCOSE-RANDOM TRACE (Negative); URINE KETONES NEGATIVE (Negative); URINE LEUKOCYTES-REFLEX 1+ (Negative); URINE NITRITE-REFLEX NEGATIVE (Negative); URINE PROTEIN NEGATIVE (Negative); URINE SPECIFIC GRAVITY 1.025 (1.005-1.030); URINE UROBILINOGEN 0.2 E.U./dl (0.2-1.0)
[2021-10-05 14:34] LABS: BACTERIA-REFLEX 1-9 Few /HPF (None Seen); CASTS None Seen /LPF (None Seen); CRYSTALS None Seen /LPF (None Seen); SQUAMOUS >10 Many /LPF (0-3); URINE RBC 0-2 Rare /HPF (0-2); URINE WBC-REFLEX 0-5 Rare /HPF (0-5)
[2021-10-05] MEDS ORDERED: HYDROCODON-ACE1 EAC7 PO (15:39)
[2021-10-05] MEDS ORDERED: CIPRO500 M1 PO (15:39)
[2021-10-05 15:53] VITALS: BP 110/67
== END 2021-10-05 15:55 | disposition home or self-care (01) ==
LOC: M.ERS 11:50
PROVIDERS: Emergency Medicine Emergency Medical Services
DX: R07.89 Other chest pain (principal); N39.0 Urinary tract infection, site not specified; I10 Essential (primary) hypertension; J44.9 Chronic obstructive pulmonary disease, unspecified; E11.9 Type 2 diabetes mellitus without complications; E66.01 Morbid (severe) obesity due to excess calories; Z68.41 Body mass index [BMI] 40.0-44.9, adult; F17.210 Nicotine dependence, cigarettes, uncomplicated; Z88.1 Allergy status to other antibiotic agents; Z88.2 Allergy status to sulfonamides; Z88.8 Allergy status to other drugs, medicaments and biological substances

== ENCOUNTER 2021-10-10 12:24 | Emergency (ER) | payer OTHER, MEDICAID ==
[~2021-10-10] VITALS: Ht 152.4 cm; Wt 91.6 kg
[~2021-10-10 12:24] MED LIST changes: +CIPRO500 M1 PO
[2021-10-10] MEDS ORDERED: HYDROCODON-ACE1 EAC7 PO (12:41)
[2021-10-10 12:49] VITALS: BP 119/69
== END 2021-10-10 12:50 | disposition home or self-care (01) ==
LOC: M.ERS 12:24
DX: R07.89 Other chest pain (principal); F32.9 Major depressive disorder, single episode, unspecified; J45.909 Unspecified asthma, uncomplicated; F41.9 Anxiety disorder, unspecified; I10 Essential (primary) hypertension; E11.9 Type 2 diabetes mellitus without complications; F20.9 Schizophrenia, unspecified; E66.01 Morbid (severe) obesity due to excess calories; J44.9 Chronic obstructive pulmonary disease, unspecified; F17.210 Nicotine dependence, cigarettes, uncomplicated; Z79.51 Long term (current) use of inhaled steroids; Z79.84 Long term (current) use of oral hypoglycemic drugs; Z79.899 Other long term (current) drug therapy; Z79.891 Long term (current) use of opiate analgesic; Z79.1 Long term (current) use of non-steroidal anti-inflammatories (NSAID); Z88.1 Allergy status to other antibiotic agents; Z88.2 Allergy status to sulfonamides; Z88.5 Allergy status to narcotic agent; Z88.8 Allergy status to other drugs, medicaments and biological substances